=== PATIENT | female | born 1960 | race Hispanic/Latino ===

== ENCOUNTER 2019-08-25 19:41 | Inpatient (IN) | payer OTHER ==
[2019-08-25] MEDS ORDERED: cefTRIAXone\\ROCEPHIN 1 GM VIAL ONE (21:01)
[2019-08-25 22:10] VITALS: BMI 37.0
[2019-08-25] MEDS ORDERED: Metoprolol Tartrate 5 MG/5 ML VIAL IVP PRN (23:30)
--- NOTE | 2019-08-26 00:06 | HP ---
REASON FOR ADMISSION: Shortness of breath. HISTORY OF PRESENT ILLNESS: This is a 59-year-old female patient, who works at [employer] and she has been in contact with workers who tested positive for COVID-19. She herself started developing severe headaches and neck pain, myalgia, fatigue, and cough. She got tested and the result was positive, this occurred approximately a week ago. As the days progressed, her symptomatology got worse, and she became more short of breath and her cough increased, that is why she came to our emergency room. The patient is currently lying comfortably in her bed, does not appear in distress. She denies fevers, denies chills. PAST MEDICAL HISTORY: High blood pressure. ALLERGIES: TO LISINOPRIL. SOCIAL HISTORY: Does not smoke. Does not drink alcohol. FAMILY HISTORY: Reviewed, found to be noncontributory. REVIEW OF SYSTEMS: All systems reviewed and except the above-mentioned cough and shortness of breath, found to be negative. PHYSICAL EXAMINATION: GENERAL: She is awake, alert, oriented, does not appear in distress. VITAL SIGNS: Her blood pressure is 164/89, her heart rate is 109, and saturating 92% on 3 L nasal cannula. HEENT: Head is nontraumatic, normocephalic. Pupils equal, reactive. Ocular movements are intact. Nonicteric sclerae. Well-injected conjunctivae. Oral mucosa normal. Nasal mucosa normal. NECK: Supple. No adenopathy. No murmur. Thyroid is not palpable. Trachea is midline. No supraclavicular adenopathy. HEART: S1, S2 regular. No murmur. No gallops. No friction rubs. No displacement of PMI. LUNGS: Fine inspiratory crackles bilaterally. ABDOMEN: Bowel sounds are positive. Nontender abdomen. No hepatosplenomegaly. EXTREMITIES: No lower extremity edema. No cyanosis noted. NEUROLOGIC: Cranial nerves 2 through 12 within normal limits. Normal motor function. Normal sensory function. Normal reflexes. LABORATORY DATA: Blood work shows WBC of 5.6, hemoglobin 13.1, platelets of 423, neutrophil count 79.5%. D-dimer 0.75. VBG shows a pH 7.444, pCO2 of 33.4, PO2 of 149. Sodium 139, potassium of 3.2, bicarb of 19. COVID-19 detected. Chest x-ray shows extensive interstitial and alveolar opacity/ground-glass disease suspicious for possible multifocal infectious pneumonitis, including COVID-19. Pulmonary edema is a possibility. ASSESSMENT AND PLAN: This is a 59-year-old female patient who is presenting with worsening of her symptoms. She was diagnosed recently with COVID-19. She does have COVID-19 associated pneumonia/pneumonitis. 1. Pulmonary: The patient did receive antibiotics in the ER, but I believe that her current presentation is secondary to COVID-19. I would maintain her on IV Decadron. She already did receive IV Solu-Medrol. I would not cover her antibiotics for now. 2. In regard of high blood pressure, we will resume her medication and will have IV Lopressor on as needed basis. 3. For DVT prophylaxis, she will be on Lovenox. 4. For her low potassium, we will recheck her potassium level in the morning. Replace if necessary. 5. I did discuss with her the code status and she wishes to be a full code. Job ID: [id number]
[2019-08-26 06:03] LABS: #Lymphocytes 0.6 thou/uL (1.20-3.40); #Monocytes 0.1 thou/uL (0.11-0.59); #Neutrophils 2.4 thou/uL (1.40-6.50); %Basophils 0.5 % (0.0-1.0); %Eosinophils 0.7 % (0.0-10.0); %Lymphocytes 18.6 % (21.0-51.0); %Monocytes 4.2 % (0.0-10.0); %Neutrophils 75.9 % (42.0-75.0); Hemoglobin 13.4 g/dL (12.0-16.0); Mean Corpuscular HGB CONC 33.2 g/dL (32.0-36.0); Mean Corpuscular Hemoglobin 31.1 pg (27.0-31.0); Mean Corpuscular Volume 93.9 fL (78.0-98.0); Mean Platelet Volume 7.8 fL (7.4-10.4); Platelet Count 434 thou/uL (130-400); RBC Distribution Width 11.5 % (11.5-14.5); Red Blood Cell (RBC) Count 4.29 mill/uL (4.20-5.40); White Blood Cell (WBC) Count 3.2 thou/uL (4.8-10.8)
[2019-08-26 06:27] LABS: ALT (SGPT) 32 U/L (8-55); AST (SGOT) 39 U/L (5-34); Albumin 3.4 g/dL (3.5-5.0); Alkaline Phosphatase 129 U/L (40-110); Anion Gap 16 mmol/L (10-20); BUN (Urea Nitrogen) 11 mg/dL (9.8-20.1); Bilirubin, Total 0.4 mg/dL (0.2-1.2); Calc. Creatinine Clearance 162 mL/min (70-130); Calcium 8.7 mg/dL (7.8-10.44); Carbon Dioxide 18 mmol/L (22-29); Chloride 108 mmol/L (98-107); Estimated GFR-MDRD Greater than 90; Globulin 3.8 g/dL (2.4-3.5); Glucose 135 mg/dL (70-105); Potassium 3.3 mmol/L (3.5-5.1); Protein, Total 7.2 g/dL (6.0-8.3); Sodium 139 mmol/L (136-145)
[2019-08-26] MEDS: Amlodipine 5 MG TAB PO SCH (08:11)
[2019-08-26] MEDS: Dexamethasone 6 MG in Sodium Chloride 0.9% 50 ML IVPB SCH (08:11)
[2019-08-26] MEDS: Losartan 25 MG TAB PO SCH (08:11)
[2019-08-26] MEDS ORDERED: cloNIDine 0.1 MG TAB PO PRN (08:45)
[2019-08-26] MEDS ORDERED: Enoxaparin Sodium 40 MG/0.4 ML SYRINGE SC SCH (09:00)
[2019-08-26] MEDS: Enoxaparin Sodium 40 MG/0.4 ML SYRINGE SC SCH ×2 (09:35→21:05)
[2019-08-26] MEDS: Potassium Chloride 20 MEQ TAB PO SCH ×2 (09:36→11:57)
[2019-08-26] MEDS: Ipratropium/Albuterol Sulfate 4 GM AER IH PRN (11:58)
--- NOTE | 2019-08-26 13:34 | PRG ---
DATE OF SERVICE: This is a consent form dictation. I discussed the use of remdesivir with patient, explained that it is an emergency use authorization drug by the FDA that it has been shown to decrease the length of illness and it can be associated with liver and kidney toxicity and because of that, we monitor liver and kidney function daily for the duration of administration of the drug. The patient understood and agreed with the administration of the medication. Job ID: [id number]
--- NOTE | 2019-08-26 14:22 | PDOC.HOSPP ---
- Subjective Encounter Date: 08/26/19 Encounter Time: 14:00 Subjective: Patient seen and examined for resp failure. Feels gen weak. SOB on mild exertion. No new complaints. No overnight events - Objective Vital Signs & Weight: Vital Signs (12 hours) Temp Pulse Resp BP BP Pulse Ox 08/26/19 08:11 80 158/81 H 08/26/19 08:00 93 L 08/26/19 04:40 98.0 F 80 18 152/89 H 92 L Weight Weight 202 lb 3.2 oz Result Diagrams: 08/27/19 05:26 08/27/19 05:26 Radiology Reviewed by me: Yes (CXR - Pneumonia) Hospitalist ROS - Review of Systems Respiratory: reports: cough, dry, SOB with excertion. denies: shortness of breath, hemoptysis, pleuritic pain, sputum, wheezing, other Cardiovascular: denies: chest pain, palpitations, orthopnea, paroxysmal noc. dyspnea, edema, light headedness, other Gastrointestinal: denies: nausea, vomiting, abdominal pain, diarrhea, constipation, melena, hematochezia, other - Medication Medications: Active Medications Generic Name Dose Route Start Last Admin Trade Name Freq PRN Reason Stop Dose Admin Albuterol/Ipratropium 0 gm 08/26/19 11:12 08/26/19 11:58 Combivent Respimat 20-100 Mcg IH 1 inh Q4H PRN Administration SOB Amlodipine Besylate 5 mg 08/26/19 09:00 08/26/19 08:11 Norvasc PO 5 mg DAILY ABEBE Administration Enoxaparin Sodium 40 mg 08/26/19 09:00 08/26/19 09:35 Lovenox SC Not Given [id number] [facility] Dexamethasone 6 mg/ Sodium 50.6 mls @ 100 mls/hr 08/26/19 09:00 08/26/19 08: 11 Chloride IVPB 50.6 mls DAILY ABEBE Administration Losartan Potassium 50 mg 08/26/19 09:00 08/26/19 08:11 Cozaar PO 50 mg DAILY ABEBE Administration - Exam General Appearance: NAD Heart: RRR, no gallops, no rubs, normal peripheral pulses Respiratory: no wheezes, rales, rhonchi, tachypneic Gastrointestinal: non-tender, non-distended, normal bowel sounds Extremities: no cyanosis, no clubbing Neurological: no new deficit Psychiatric: normal affect, A&O x 3 Hosp A/P - Plan DVT proph w/lovenox, DVT proph w/SCDs Sepsis/Acute hypoxic resp failure due to COVID Pneumonia HTN Obesity BMI 37 Hypokalemia PLAN: Remdesivir started Cont Dexamethasone Replace Potassium Cont Amlodipine/Losartan Cont other meds as above AM labs
[2019-08-26 15:33] LABS: ALT (SGPT) 36 U/L (8-55); AST (SGOT) 41 U/L (5-34); Albumin 3.4 g/dL (3.5-5.0); Alkaline Phosphatase 135 U/L (40-110); Anion Gap 14 mmol/L (10-20); BUN (Urea Nitrogen) 15 mg/dL (9.8-20.1); Bilirubin, Direct 0.3 mg/dL (0.1-0.3); Bilirubin, Total 0.4 mg/dL (0.2-1.2); Calc. Creatinine Clearance 149 mL/min (70-130); Carbon Dioxide 20 mmol/L (22-29); Chloride 108 mmol/L (98-107); Estimated GFR-MDRD Greater than 90; Glucose 136 mg/dL (70-105); Potassium 4.1 mmol/L (3.5-5.1); Protein, Total 7.4 g/dL (6.0-8.3); Sodium 138 mmol/L (136-145)
--- NOTE | 2019-08-26 19:34 | CON ---
DATE OF CONSULTATION: 08/26/2019 REASON FOR CONSULTATION: COVID pneumonia. HISTORY OF PRESENT ILLNESS: A 59-year-old with history of hypertension, developed cough on August 16, persisted with fever on August 17, and then she tested positive for COVID on Tuesday and admitted yesterday with worsening dyspnea, cough, weakness, some lethargy, no headaches, some rhinorrhea, sinus pain, some sore throat, some sputum which is clear, some diarrhea, nausea associated with it as well, and vomiting. No abdominal pain. No genitourinary symptoms. No joint symptoms. No neurological symptoms. PAST MEDICAL HISTORY: Hypertension. SURGICAL HISTORY: Hysterectomy, . SOCIAL HISTORY: Never smoker. 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 ALLERGIES: LISINOPRIL. MEDICATIONS: 1. Losartan. 2. Norvasc. Currently, she is on; 1. Norvasc. 2. Clonidine. 3. Decadron. 4. Enoxaparin b.i.d. PHYSICAL EXAMINATION: VITAL SIGNS: T-max 98.7, blood pressure 150/89, pulse 80, respirations 18, and O2 saturation ranged from 92%. She is at 4 L nasal cannula at this time. SKIN: Normal. No lymphadenopathy. GENERAL: Awake, alert. She is able to speak in full sentences. HEENT: Ocular movements are conjugate. Oral cavity normal. NECK: Supple. LUNGS: With scattered inspiratory crackles particularly on the left lower lobe. No wheezing. HEART: S1 and S2. Regular rate. No S3 or S4. ABDOMEN: Soft, not distended or tender. No ascites. No bladder distention. EXTREMITIES: No joint inflammatory activity. NEURO: Nonfocal. LABORATORY DATA: White cell count 3.2, hemoglobin 13.4, platelets 434 with 75% neutrophils. Sodium 139, creatinine 0.54, AST 39, albumin 3.4. BNP 93. Microbiology, no negative growth in blood cultures. IMAGING STUDIES: Chest x-ray with bilateral interstitial alveolar opacification. ASSESSMENT: Hypertension, exposure in the workplace at [employer] in [place], where an outbreak seems to be going on, now comes in with severe infection at 10 days of illness. She is at 4 L O2 suppl . We will go ahead and start Remdesivir. Continue Decadron, Lovenox, and daily liver, basic metabolic panel as well as monitor inflammatory markers and D-dimer. suppl Job ID: [id number] [facility]
[2019-08-26] MEDS: Ascorbic Acid 500 mg Chewable Tablet PO SCH (21:04)
[2019-08-26] MEDS: Zinc Sulfate 220 MG CAP PO SCH (21:05)
[2019-08-27] MEDS: Benzonatate 100 MG CAP PO PRN ×2 (01:16→10:52)
[2019-08-27] MEDS: Acetaminophen 325 MG TAB PO PRN ×2 (01:16→06:34)
[2019-08-27 05:47] LABS: #Monocytes 0.6 thou/uL (0.11-0.59); #Neutrophils 7.7 thou/uL (1.40-6.50); %Basophils 0.2 % (0.0-1.0); %Eosinophils 0.2 % (0.0-10.0); %Lymphocytes 11.1 % (21.0-51.0); %Monocytes 6.1 % (0.0-10.0); %Neutrophils 82.4 % (42.0-75.0); Hemoglobin 12.8 g/dL (12.0-16.0); Mean Corpuscular HGB CONC 33.3 g/dL (32.0-36.0); Mean Corpuscular Hemoglobin 31.3 pg (27.0-31.0); Mean Platelet Volume 7.5 fL (7.4-10.4); Platelet Count 469 thou/uL (130-400); RBC Distribution Width 11.7 % (11.5-14.5); Red Blood Cell (RBC) Count 4.09 mill/uL (4.20-5.40); White Blood Cell (WBC) Count 9.4 thou/uL (4.8-10.8)
[2019-08-27 06:06] LABS: ALT (SGPT) 33 U/L (8-55); AST (SGOT) 32 U/L (5-34); Albumin 3.1 g/dL (3.5-5.0); Alkaline Phosphatase 112 U/L (40-110); Anion Gap 11 mmol/L (10-20); BUN (Urea Nitrogen) 19 mg/dL (9.8-20.1); Bilirubin, Total 0.4 mg/dL (0.2-1.2); CRP (Inflammatory) 5.29 mg/dL (= or < 0.5); Calc. Creatinine Clearance 144 mL/min (70-130); Calcium 8.7 mg/dL (7.8-10.44); Carbon Dioxide 22 mmol/L (22-29); Chloride 110 mmol/L (98-107); Estimated GFR-MDRD Greater than 90; Globulin 3.5 g/dL (2.4-3.5); Glucose 121 mg/dL (70-105); Potassium 4.2 mmol/L (3.5-5.1); Protein, Total 6.6 g/dL (6.0-8.3); Sodium 139 mmol/L (136-145)
[2019-08-27] MEDS: Dexamethasone 6 MG in Sodium Chloride 0.9% 50 ML IVPB SCH (08:25)
[2019-08-27] MEDS: Multivit, Therapeutic 1 TAB PO SCH (08:26)
[2019-08-27] MEDS: Enoxaparin Sodium 40 MG/0.4 ML SYRINGE SC SCH ×2 (08:26→20:29)
[2019-08-27] MEDS: Amlodipine 5 MG TAB PO SCH (08:26)
[2019-08-27] MEDS: Losartan 25 MG TAB PO SCH (08:26)
[2019-08-27] MEDS ORDERED: Vancomycin 1 GM in Premix Bag 1 BAG IVPB SCH (09:30)
[2019-08-27] MEDS ORDERED: Vancomycin HCl 1.75 GM in Sodium Chloride 0.9% 500 ML IVPB SCH (10:00)
--- NOTE | 2019-08-27 19:58 | PDOC.HOSPP ---
- Subjective Encounter Date: 08/27/19 Encounter Time: 19:58 - Objective Vital Signs & Weight: Vital Signs (12 hours) Temp Pulse Resp BP Pulse Ox 08/27/19 15:31 97.8 F 90 24 H 149/88 H 93 L 08/27/19 11:05 98.5 F 94 18 146/86 H 94 L 08/27/19 08:40 98.1 F 91 20 158/94 H 96 Weight Weight 202 lb 3.2 oz I&O: 08/26/19 08/27/19 08/28/19 06:59 06:59 06:59 Intake Total 1230 Balance 1230 Result Diagrams: 08/27/19 05:26 08/27/19 05:26 Hospitalist ROS - Medication Medications: Active Medications Generic Name Dose Route Start Last Admin Trade Name Freq PRN Reason Stop Dose Admin Acetaminophen 650 mg 08/25/19 23:29 08/27/19 06:34 Tylenol PO 650 mg Q4H PRN Administration Headache/Fever/Mild Pain (1-3) Albuterol/Ipratropium 0 gm 08/26/19 11:12 08/26/19 11:58 Combivent Respimat 20-100 Mcg IH 1 inh Q4H PRN Administration SOB Amlodipine Besylate 5 mg 08/26/19 09:00 08/27/19 08:26 Norvasc PO 5 mg DAILY ABEBE Administration Ascorbic Acid 1,000 mg 08/26/19 21:00 08/26/19 21:04 Vitamin C PO 1,000 mg HS ABEBE Administration Benzonatate 100 mg 08/27/19 00:52 08/27/19 10:52 Tessalon PO 100 mg TIDPRN PRN Administration Cough Enoxaparin Sodium 40 mg 08/26/19 09:00 08/27/19 08:26 Lovenox SC 40 mg 0900,2100 ABEBE Administration Dexamethasone 6 mg/ Sodium 50.6 mls @ 100 mls/hr 08/26/19 09:00 08/27/19 08: 25 Chloride IVPB 50.6 mls DAILY ABEBE Administration Remdesivir 100 Mg In 250 mls @ 250 mls/hr 08/27/19 15:00 08/27/19 15:11 Sodium Chloride 0.9 IV 08/30/19 15:59 250 mls % 250 Ml 1500 ABEBE Administration Losartan Potassium 50 mg 08/26/19 09:00 08/27/19 08:26 Cozaar PO 50 mg DAILY ABEBE Administration Multivitamins 1 tab 08/27/19 09:00 08/27/19 08:26 Theragran PO 1 tab DAILY ABEBE Administration Sodium Chloride 10 ml 08/26/19 21:00 08/27/19 08:26 Flush - Normal Saline IVF 10 ml Q12HR ABEBE Administration Zinc Sulfate 220 mg 08/26/19 21:00 08/26/19 21:05 Zinc Sulfate PO 220 mg HS ABEBE Administration Hosp A/P - Plan Sepsis/Acute hypoxic resp failure due to COVID Pneumonia -on Dexamethasone - day 2 -on Remdesivir - day 2 HTN Obesity BMI 37 Hypokalemia PLAN: Cont O2 supp Cont Remdesivir Cont Dexamethasone Cont Amlodipine Cont Losartan Cont other meds as above AM labs Monitor LFTs
[2019-08-27] MEDS: Zinc Sulfate 220 MG CAP PO SCH (20:29)
[2019-08-27] MEDS: guaiFENesin ER 600 MG TAB PO SCH (20:29)
[2019-08-27] MEDS: Ascorbic Acid 500 mg Chewable Tablet PO SCH (20:29)
[2019-08-28] MEDS: Benzonatate 100 MG CAP PO PRN ×2 (04:29→21:00)
[2019-08-28] MEDS: Cepastat Lozenges 1 LOZ PO PRN ×3 (04:48→21:08)
[2019-08-28 06:44] LABS: #Lymphocytes 0.9 thou/uL (1.20-3.40); #Monocytes 0.6 thou/uL (0.11-0.59); %Eosinophils 0.3 % (0.0-10.0); %Lymphocytes 9.5 % (21.0-51.0); %Monocytes 5.9 % (0.0-10.0); %Neutrophils 84.2 % (42.0-75.0); Hemoglobin 12.2 g/dL (12.0-16.0); Mean Corpuscular HGB CONC 34.1 g/dL (32.0-36.0); Mean Corpuscular Volume 93.9 fL (78.0-98.0); Mean Platelet Volume 7.5 fL (7.4-10.4); Platelet Count 414 thou/uL (130-400); RBC Distribution Width 11.7 % (11.5-14.5); Red Blood Cell (RBC) Count 3.81 mill/uL (4.20-5.40); White Blood Cell (WBC) Count 9.5 thou/uL (4.8-10.8)
[2019-08-28 07:05] LABS: ALT (SGPT) 26 U/L (8-55); AST (SGOT) 22 U/L (5-34); Alkaline Phosphatase 94 U/L (40-110); Anion Gap 13 mmol/L (10-20); BUN (Urea Nitrogen) 16 mg/dL (9.8-20.1); Bilirubin, Total 0.4 mg/dL (0.2-1.2); Calc. Creatinine Clearance 157 mL/min (70-130); Calcium 8.3 mg/dL (7.8-10.44); Carbon Dioxide 20 mmol/L (22-29); Chloride 108 mmol/L (98-107); Estimated GFR-MDRD Greater than 90; Globulin 3.1 g/dL (2.4-3.5); Glucose 95 mg/dL (70-105); Potassium 3.5 mmol/L (3.5-5.1); Protein, Total 6.1 g/dL (6.0-8.3); Sodium 137 mmol/L (136-145)
[2019-08-28] MEDS: guaiFENesin ER 600 MG TAB PO SCH ×2 (07:57→21:00)
[2019-08-28] MEDS: Multivit, Therapeutic 1 TAB PO SCH (07:57)
[2019-08-28] MEDS: Amlodipine 5 MG TAB PO SCH (07:57)
[2019-08-28] MEDS: Losartan 25 MG TAB PO SCH (07:58)
[2019-08-28] MEDS: Enoxaparin Sodium 40 MG/0.4 ML SYRINGE SC SCH ×2 (07:58→21:00)
[2019-08-28] MEDS: Dexamethasone 6 MG in Sodium Chloride 0.9% 50 ML IVPB SCH (07:58)
[2019-08-28] MEDS: Acetaminophen 325 MG TAB PO PRN (09:50)
--- NOTE | 2019-08-28 11:41 | PDOC.HOSPP ---
- Subjective Encounter Date: 08/28/19 Encounter Time: 13:37 Subjective: Patient seen and examined for COVID Pneumonia. Productive cough. No other complaints. No overnight events - Objective Vital Signs & Weight: Vital Signs (12 hours) Temp Pulse Resp BP Pulse Ox 08/28/19 10:00 97 08/28/19 08:27 98.8 F 88 20 164/92 H 93 L 08/28/19 04:42 88 18 96 08/28/19 00:54 92 L Weight Weight 202 lb 3.2 oz I&O: 08/27/19 08/28/19 08/29/19 06:59 06:59 06:59 Intake Total 1230 Balance 1230 Result Diagrams: 08/28/19 06:16 08/28/19 06:16 Hospitalist ROS - Review of Systems Cardiovascular: denies: chest pain, palpitations, orthopnea, paroxysmal noc. dyspnea, edema, light headedness, other Gastrointestinal: reports: constipation. denies: nausea, vomiting, abdominal pain, diarrhea, melena, hematochezia, other - Medication Medications: Active Medications Generic Name Dose Route Start Last Admin Trade Name Freq PRN Reason Stop Dose Admin Acetaminophen 650 mg 08/25/19 23:29 08/28/19 09:50 Tylenol PO 650 mg Q4H PRN Administration Headache/Fever/Mild Pain (1-3) Albuterol/Ipratropium 0 gm 08/26/19 11:12 08/26/19 11:58 Combivent Respimat 20-100 Mcg IH 1 inh Q4H PRN Administration SOB Amlodipine Besylate 5 mg 08/26/19 09:00 08/28/19 07:57 Norvasc PO 5 mg DAILY ABEBE Administration Ascorbic Acid 1,000 mg 08/26/19 21:00 08/27/19 20:29 Vitamin C PO 1,000 mg HS ABEBE Administration Benzonatate 100 mg 08/27/19 00:52 08/28/19 04:29 Tessalon PO 100 mg TIDPRN PRN Administration Cough Enoxaparin Sodium 40 mg 08/26/19 09:00 08/28/19 07:58 Lovenox SC 40 mg 0900,2100 ABEBE Administration Guaifenesin 600 mg 08/27/19 21:00 08/28/19 07:57 Mucinex PO 600 mg Q12HR ABEBE Administration Dexamethasone 6 mg/ Sodium 50.6 mls @ 100 mls/hr 08/26/19 09:00 08/28/19 07: 58 Chloride IVPB 50.6 mls DAILY ABEBE Administration Remdesivir 100 Mg In 250 mls @ 250 mls/hr 08/27/19 15:00 08/27/19 15:11 Sodium Chloride 0.9 IV 08/30/19 15:59 250 mls % 250 Ml 1500 ABEBE Administration Losartan Potassium 50 mg 08/26/19 09:00 08/28/19 07:58 Cozaar PO 50 mg DAILY ABEBE Administration Multivitamins 1 tab 08/27/19 09:00 08/28/19 07:57 Theragran PO 1 tab DAILY ABEBE Administration Sodium Chloride 10 ml 08/26/19 21:00 08/28/19 07:58 Flush - Normal Saline IVF 10 ml Q12HR ABEBE Administration Throat Lozenges 1 russell 08/27/19 19:53 08/28/19 09:51 Cepastat Lozenges PO 1 russell Q2H PRN Administration Sore Throat Zinc Sulfate 220 mg 08/26/19 21:00 08/27/19 20:29 Zinc Sulfate PO 220 mg HS ABEBE Administration - Exam General Appearance: NAD Neck: supple, no JVD Heart: RRR, no gallops Respiratory: no wheezes, rhonchi Gastrointestinal: soft, non-distended Extremities: no cyanosis Neurological: no new deficit Hosp A/P - Plan DVT proph w/lovenox, DVT proph w/SCDs Sepsis/Acute hypoxic resp failure due to COVID Pneumonia -on Dexamethasone - day 3 -on Remdesivir - day 3 HTN Obesity BMI 37 Hypokalemia PLAN: Cont O2 supp Cont Remdesivir Cont Dexamethasone Cont Amlodipine/Losartan Cont other meds as above AM labs Will send note to Pt;s work at [phone]
[2019-08-28] MEDS: Potassium Chloride 10 MEQ TAB PO SCH (17:12)
[2019-08-28] MEDS: Diabetic Tussin 200 MG/10 ML UDCUP PO PRN (21:00)
[2019-08-28] MEDS: Polyethylene Glycol 3350 17 GM Packet PO SCH (21:00)
[2019-08-28] MEDS: Senokot S 8.6-50 MG TAB PO SCH (21:00)
[2019-08-28] MEDS: Ascorbic Acid 500 mg Chewable Tablet PO SCH (21:00)
[2019-08-28] MEDS: Zinc Sulfate 220 MG CAP PO SCH (21:03)
[2019-08-29] MEDS: Acetaminophen 325 MG TAB PO PRN ×2 (03:03→19:57)
[2019-08-29 05:41] LABS: #Monocytes 0.6 thou/uL (0.11-0.59); #Neutrophils 6.2 thou/uL (1.40-6.50); %Basophils 0.2 % (0.0-1.0); %Eosinophils 0.6 % (0.0-10.0); %Lymphocytes 12.8 % (21.0-51.0); %Monocytes 7.1 % (0.0-10.0); %Neutrophils 79.4 % (42.0-75.0); Hemoglobin 11.8 g/dL (12.0-16.0); Mean Corpuscular HGB CONC 32.5 g/dL (32.0-36.0); Mean Corpuscular Hemoglobin 30.9 pg (27.0-31.0); Mean Corpuscular Volume 94.9 fL (78.0-98.0); Platelet Count 404 thou/uL (130-400); RBC Distribution Width 11.8 % (11.5-14.5); Red Blood Cell (RBC) Count 3.81 mill/uL (4.20-5.40); White Blood Cell (WBC) Count 7.9 thou/uL (4.8-10.8)
[2019-08-29 06:04] LABS: ALT (SGPT) 25 U/L (8-55); AST (SGOT) 24 U/L (5-34); Albumin 2.8 g/dL (3.5-5.0); Alkaline Phosphatase 90 U/L (40-110); Anion Gap 12 mmol/L (10-20); BUN (Urea Nitrogen) 14 mg/dL (9.8-20.1); Bilirubin, Total 0.4 mg/dL (0.2-1.2); Calc. Creatinine Clearance 172 mL/min (70-130); Carbon Dioxide 20 mmol/L (22-29); Chloride 108 mmol/L (98-107); Estimated GFR-MDRD Greater than 90; Glucose 100 mg/dL (70-105); Potassium 3.6 mmol/L (3.5-5.1); Protein, Total 5.8 g/dL (6.0-8.3); Sodium 136 mmol/L (136-145)
[2019-08-29] MEDS: guaiFENesin ER 600 MG TAB PO SCH ×2 (08:28→19:57)
[2019-08-29] MEDS: Senokot S 8.6-50 MG TAB PO SCH ×2 (08:28→19:57)
[2019-08-29] MEDS: Enoxaparin Sodium 40 MG/0.4 ML SYRINGE SC SCH ×2 (08:28→19:57)
[2019-08-29] MEDS: Potassium Chloride 10 MEQ TAB PO SCH ×2 (08:28→17:14)
[2019-08-29] MEDS: Dexamethasone 6 MG in Sodium Chloride 0.9% 50 ML IVPB SCH (08:29)
[2019-08-29] MEDS: Multivit, Therapeutic 1 TAB PO SCH (08:29)
[2019-08-29] MEDS: Losartan 25 MG TAB PO SCH (08:29)
[2019-08-29] MEDS: Amlodipine 5 MG TAB PO SCH (08:29)
--- NOTE | 2019-08-29 10:23 | PDOC.HOSPP ---
- Subjective Encounter Date: 08/29/19 Encounter Time: 18:00 Subjective: Patient seen and examined for Sepsis. SOB on mild exertion. Mild dry cough +. No new complaints. No overnight events - Objective Vital Signs & Weight: Vital Signs (12 hours) Temp Pulse Resp BP Pulse Ox 08/29/19 08:00 97.8 F 100 20 133/82 94 L 08/29/19 03:09 85 18 93 L Weight Weight 202 lb 3.2 oz I&O: 08/28/19 08/29/19 08/30/19 06:59 06:59 06:59 Intake Total 1230 730 Balance 1230 730 Result Diagrams: 08/30/19 06:03 08/30/19 06:03 Hospitalist ROS - Review of Systems Cardiovascular: denies: chest pain, palpitations, orthopnea, paroxysmal noc. dyspnea, edema, light headedness, other Gastrointestinal: denies: nausea, vomiting, abdominal pain, diarrhea, constipation, melena, hematochezia, other - Medication Medications: Active Medications Generic Name Dose Route Start Last Admin Trade Name Freq PRN Reason Stop Dose Admin Acetaminophen 650 mg 08/25/19 23:29 08/29/19 03:03 Tylenol PO 650 mg Q4H PRN Administration Headache/Fever/Mild Pain (1-3) Albuterol/Ipratropium 0 gm 08/26/19 11:12 08/26/19 11:58 Combivent Respimat 20-100 Mcg IH 1 inh Q4H PRN Administration SOB Amlodipine Besylate 5 mg 08/26/19 09:00 08/29/19 08:29 Norvasc PO 5 mg DAILY ABEBE Administration Ascorbic Acid 1,000 mg 08/26/19 21:00 08/28/19 21:00 Vitamin C PO 1,000 mg HS ABEBE Administration Benzonatate 100 mg 08/27/19 00:52 08/28/19 21:00 Tessalon PO 100 mg TIDPRN PRN Administration Cough Enoxaparin Sodium 40 mg 08/26/19 09:00 08/29/19 08:28 Lovenox SC 40 mg 0900,2100 ABEBE Administration Guaifenesin 600 mg 08/27/19 21:00 08/29/19 08:28 Mucinex PO 600 mg Q12HR ABEBE Administration Guaifenesin 200 mg 08/27/19 19:53 08/28/19 21:00 Robitussin Sf PO 200 mg Q4H PRN Administration Cough Dexamethasone 6 mg/ Sodium 50.6 mls @ 100 mls/hr 08/26/19 09:00 08/29/19 08: 29 Chloride IVPB 50.6 mls DAILY ABEBE Administration Remdesivir 100 Mg In 250 mls @ 250 mls/hr 08/27/19 15:00 08/28/19 15:27 Sodium Chloride 0.9 IV 08/30/19 15:59 250 mls % 250 Ml 1500 ABEBE Administration Losartan Potassium 50 mg 08/26/19 09:00 08/29/19 08:29 Cozaar PO 50 mg DAILY ABEBE Administration Multivitamins 1 tab 08/27/19 09:00 08/29/19 08:29 Theragran PO 1 tab DAILY ABEBE Administration Polyethylene Glycol 17 gm 08/28/19 21:00 08/28/19 21:00 Miralax PO 17 gm HS ABEBE Administration Potassium Chloride 10 meq 08/28/19 17:00 08/29/19 08:28 Klor-Con 10 PO 10 meq BID-WM ABEBE Administration Senna/Docusate Sodium 2 tab 08/28/19 21:00 08/29/19 08:28 Senokot S PO 2 tab BID ABEBE Administration Sodium Chloride 10 ml 08/26/19 21:00 08/29/19 08:29 Flush - Normal Saline IVF 10 ml Q12HR ABEBE Administration Throat Lozenges 1 russell 08/27/19 19:53 08/28/19 21:08 Cepastat Lozenges PO 1 russell Q2H PRN Administration Sore Throat Zinc Sulfate 220 mg 08/26/19 21:00 08/28/19 21:03 Zinc Sulfate PO 220 mg HS ABEBE Administration - Exam General Appearance: ill appearing Heart: RRR, no gallops Respiratory: no wheezes, rhonchi Gastrointestinal: soft, non-distended Extremities: no cyanosis Neurological: no new deficit Psychiatric: A&O x 3 Hosp A/P - Plan DVT proph w/SCDs Sepsis/Acute hypoxic resp failure due to COVID Pneumonia -on Dexamethasone - day 4 -on Remdesivir - day 4 HTN Obesity BMI 37 Hypokalemia PLAN: Cont O2 supp Cont Remdesivir/Dexamethasone Cont Amlodipine Cont Losartan AM labs Cont other meds as above
--- NOTE | 2019-08-29 16:57 | PRG ---
DATE OF SERVICE: 08/29/2019 SUBJECTIVE: Ms. Heidi Mcmanus does not have any major complaints. She ate about 75% of her meal. OBJECTIVE: VITAL SIGNS: She has been afebrile, O2 saturations are between 93% and 94% on 2 L nasal cannula, which is down from when she came in. LUNGS: Clear breath sounds. HEART: S1 and S2. Regular rate. ABDOMEN: Soft, not distended. LABORATORY DATA: D-dimer is down to 1.75. Ferritin is significantly down to 186, and C-reactive protein is down to 4.48. The patient is on Decadron and received Remdesivir finishing the course. ASSESSMENT AND DISCUSSION: Hypertension and improving COVID infection. O2 supplementation requirements are down and looks like she is going to be able to be discharged soon. Job ID: [id number]
[2019-08-29] MEDS: Polyethylene Glycol 3350 17 GM Packet PO SCH (19:04)
[2019-08-29] MEDS: Diabetic Tussin 200 MG/10 ML UDCUP PO PRN (19:57)
[2019-08-29] MEDS: Ascorbic Acid 500 mg Chewable Tablet PO SCH (19:57)
[2019-08-29] MEDS: Benzonatate 100 MG CAP PO PRN (19:57)
[2019-08-29] MEDS: Zinc Sulfate 220 MG CAP PO SCH (19:57)
[2019-08-30] MEDS: Diabetic Tussin 200 MG/10 ML UDCUP PO PRN ×3 (05:07→19:45)
[2019-08-30] MEDS: Benzonatate 100 MG CAP PO PRN ×3 (05:07→19:44)
[2019-08-30 06:40] LABS: #Eosinphils 0.1 thou/uL (0.0-0.7); #Lymphocytes 1.2 thou/uL (1.20-3.40); #Monocytes 0.7 thou/uL (0.11-0.59); #Neutrophils 8.8 thou/uL (1.40-6.50); %Basophils 0.1 % (0.0-1.0); %Lymphocytes 11.1 % (21.0-51.0); %Monocytes 6.5 % (0.0-10.0); %Neutrophils 81.4 % (42.0-75.0); Hemoglobin 12.6 g/dL (12.0-16.0); Mean Corpuscular HGB CONC 33.9 g/dL (32.0-36.0); Mean Corpuscular Hemoglobin 32.2 pg (27.0-31.0); Mean Platelet Volume 7.8 fL (7.4-10.4); Platelet Count 428 thou/uL (130-400); RBC Distribution Width 11.8 % (11.5-14.5); Red Blood Cell (RBC) Count 3.91 mill/uL (4.20-5.40); White Blood Cell (WBC) Count 10.8 thou/uL (4.8-10.8)
[2019-08-30 07:01] LABS: ALT (SGPT) 31 U/L (8-55); AST (SGOT) 29 U/L (5-34); Alkaline Phosphatase 100 U/L (40-110); Anion Gap 12 mmol/L (10-20); BUN (Urea Nitrogen) 15 mg/dL (9.8-20.1); Bilirubin, Total 0.5 mg/dL (0.2-1.2); Calc. Creatinine Clearance 165 mL/min (70-130); Calcium 8.3 mg/dL (7.8-10.44); Carbon Dioxide 23 mmol/L (22-29); Chloride 107 mmol/L (98-107); Estimated GFR-MDRD Greater than 90; Glucose 97 mg/dL (70-105); Potassium 3.6 mmol/L (3.5-5.1); Sodium 138 mmol/L (136-145)
[2019-08-30] MEDS: Senokot S 8.6-50 MG TAB PO SCH ×3 (08:52→19:44)
[2019-08-30] MEDS: guaiFENesin ER 600 MG TAB PO SCH ×2 (08:53→19:44)
[2019-08-30] MEDS: Amlodipine 5 MG TAB PO SCH (08:53)
[2019-08-30] MEDS: Potassium Chloride 10 MEQ TAB PO SCH ×2 (08:53→17:54)
[2019-08-30] MEDS: Losartan 25 MG TAB PO SCH (08:53)
[2019-08-30] MEDS: Multivit, Therapeutic 1 TAB PO SCH (08:53)
[2019-08-30] MEDS: Dexamethasone 6 MG in Sodium Chloride 0.9% 50 ML IVPB SCH (08:54)
[2019-08-30] MEDS: Enoxaparin Sodium 40 MG/0.4 ML SYRINGE SC SCH ×2 (08:54→19:45)
[2019-08-30] MEDS: Acetaminophen 325 MG TAB PO PRN (12:36)
[2019-08-30] MEDS: Polyethylene Glycol 3350 17 GM Packet PO SCH (19:25)
[2019-08-30] MEDS ORDERED: hydrALAZINE 20 MG/ML VIAL SLOW IVP PRN (19:35)
--- NOTE | 2019-08-30 19:35 | PDOC.HOSPP ---
- Subjective Encounter Date: 08/30/19 Encounter Time: 17:30 Subjective: Patient seen and examined for Sepsis/COVID. SOB on minimal exertion. No new complaints. No overnight events - Objective Vital Signs & Weight: Vital Signs (12 hours) Temp Pulse Resp BP Pulse Ox 08/30/19 08:06 97.8 F 98 20 142/82 H 92 L 08/30/19 08:00 92 L Weight Weight 202 lb 3.2 oz I&O: 08/29/19 08/30/19 08/31/19 06:59 06:59 06:59 Intake Total 709 731 8883 Balance 985 135 0908 Result Diagrams: 08/30/19 06:03 08/30/19 06:03 Hospitalist ROS - Review of Systems Cardiovascular: denies: chest pain, palpitations, orthopnea, paroxysmal noc. dyspnea, edema, light headedness, other Gastrointestinal: denies: nausea, vomiting, abdominal pain, diarrhea, constipation, melena, hematochezia, other - Medication Medications: Active Medications Generic Name Dose Route Start Last Admin Trade Name Freq PRN Reason Stop Dose Admin Acetaminophen 650 mg 08/25/19 23:29 08/30/19 12:36 Tylenol PO 650 mg Q4H PRN Administration Headache/Fever/Mild Pain (1-3) Albuterol/Ipratropium 0 gm 08/26/19 11:12 08/26/19 11:58 Combivent Respimat 20-100 Mcg IH 1 inh Q4H PRN Administration SOB Amlodipine Besylate 5 mg 08/26/19 09:00 08/30/19 08:53 Norvasc PO 5 mg DAILY ABEBE Administration Ascorbic Acid 1,000 mg 08/26/19 21:00 08/29/19 19:57 Vitamin C PO 1,000 mg HS ABEBE Administration Benzonatate 100 mg 08/27/19 00:52 08/30/19 15:15 Tessalon PO 100 mg TIDPRN PRN Administration Cough Enoxaparin Sodium 40 mg 08/26/19 09:00 08/30/19 08:54 Lovenox SC 40 mg 0900,2100 ABEBE Administration Guaifenesin 600 mg 08/27/19 21:00 08/30/19 08:53 Mucinex PO 600 mg Q12HR ABEBE Administration Guaifenesin 200 mg 08/27/19 19:53 08/30/19 08:53 Robitussin Sf PO 200 mg Q4H PRN Administration Cough Dexamethasone 6 mg/ Sodium 50.6 mls @ 100 mls/hr 08/26/19 09:00 08/30/19 08: 54 Chloride IVPB 50.6 mls DAILY ABEBE Administration Losartan Potassium 50 mg 08/26/19 09:00 08/30/19 08:53 Cozaar PO 50 mg DAILY ABEBE Administration Multivitamins 1 tab 08/27/19 09:00 08/30/19 08:53 Theragran PO 1 tab DAILY ABEBE Administration Polyethylene Glycol 17 gm 08/28/19 21:00 08/30/19 19:25 Miralax PO Not Given HS ABEBE Potassium Chloride 10 meq 08/28/19 17:00 08/30/19 17:54 Klor-Con 10 PO 10 meq BID-WM ABEBE Administration Senna/Docusate Sodium 2 tab 08/28/19 21:00 08/30/19 09:12 Senokot S PO Not Given BID ABEBE Sodium Chloride 10 ml 08/26/19 21:00 08/30/19 08:54 Flush - Normal Saline IVF 10 ml Q12HR ABEBE Administration Throat Lozenges 1 russell 08/27/19 19:53 08/28/19 21:08 Cepastat Lozenges PO 1 russell Q2H PRN Administration Sore Throat Zinc Sulfate 220 mg 08/26/19 21:00 08/29/19 19:57 Zinc Sulfate PO 220 mg HS ABEBE Administration - Exam General Appearance: ill appearing Heart: RRR, no gallops Respiratory: no wheezes, no rales, rhonchi Gastrointestinal: soft, non-tender Extremities: no cyanosis Neurological: no new deficit Hosp A/P - Plan DVT proph w/lovenox, DVT proph w/SCDs Sepsis/Acute hypoxic resp failure due to COVID Pneumonia -s/p Remdesivir HTN Obesity BMI 37 Hypokalemia PLAN: Cont O2 supp Cont Dexamethasone Cont Amlodipine/Losartan Cont other meds as above AM labs including inflammatory markers
[2019-08-30] MEDS: Ascorbic Acid 500 mg Chewable Tablet PO SCH (19:44)
[2019-08-30] MEDS: Zinc Sulfate 220 MG CAP PO SCH (19:45)
[2019-08-31 07:20] LABS: ALT (SGPT) 29 U/L (8-55); AST (SGOT) 25 U/L (5-34); Albumin 3.2 g/dL (3.5-5.0); Alkaline Phosphatase 104 U/L (40-110); Anion Gap 13 mmol/L (10-20); BUN (Urea Nitrogen) 14 mg/dL (9.8-20.1); Bilirubin, Total 0.5 mg/dL (0.2-1.2); Calc. Creatinine Clearance 151 mL/min (70-130); Calcium 8.7 mg/dL (7.8-10.44); Carbon Dioxide 22 mmol/L (22-29); Chloride 107 mmol/L (98-107); Estimated GFR-MDRD Greater than 90; Globulin 3.4 g/dL (2.4-3.5); Glucose 92 mg/dL (70-105); Potassium 4.3 mmol/L (3.5-5.1); Protein, Total 6.6 g/dL (6.0-8.3); Sodium 138 mmol/L (136-145)
[2019-08-31 07:25] LABS: #Eosinphils 0.1 thou/uL (0.0-0.7); #Lymphocytes 1.4 thou/uL (1.20-3.40); #Monocytes 0.6 thou/uL (0.11-0.59); %Basophils 0.2 % (0.0-1.0); %Eosinophils 0.6 % (0.0-10.0); %Lymphocytes 13.5 % (21.0-51.0); %Monocytes 5.5 % (0.0-10.0); %Neutrophils 80.2 % (42.0-75.0); Hemoglobin 12.7 g/dL (12.0-16.0); Mean Corpuscular HGB CONC 33.4 g/dL (32.0-36.0); Mean Corpuscular Hemoglobin 31.4 pg (27.0-31.0); Mean Corpuscular Volume 93.7 fL (78.0-98.0); Mean Platelet Volume 8.1 fL (7.4-10.4); Platelet Count 509 thou/uL (130-400); RBC Distribution Width 12.2 % (11.5-14.5); Red Blood Cell (RBC) Count 4.04 mill/uL (4.20-5.40)
[2019-08-31] MEDS: Acetaminophen 325 MG TAB PO PRN (09:09)
[2019-08-31] MEDS: Amlodipine 5 MG TAB PO SCH (09:09)
[2019-08-31] MEDS: Senokot S 8.6-50 MG TAB PO SCH ×2 (09:09→19:39)
[2019-08-31] MEDS: Multivit, Therapeutic 1 TAB PO SCH (09:09)
[2019-08-31] MEDS: guaiFENesin ER 600 MG TAB PO SCH ×2 (09:09→19:39)
[2019-08-31] MEDS: Losartan 25 MG TAB PO SCH (09:09)
[2019-08-31] MEDS: Potassium Chloride 10 MEQ TAB PO SCH ×2 (09:09→16:00)
[2019-08-31] MEDS: Benzonatate 100 MG CAP PO PRN ×3 (09:09→19:39)
[2019-08-31] MEDS: Dexamethasone 6 MG in Sodium Chloride 0.9% 50 ML IVPB SCH (09:10)
[2019-08-31] MEDS: Enoxaparin Sodium 40 MG/0.4 ML SYRINGE SC SCH ×2 (09:10→19:38)
[2019-08-31] MEDS: Famotidine 20 MG TAB PO SCH ×2 (10:06→19:39)
[2019-08-31] MEDS: Diabetic Tussin 200 MG/10 ML UDCUP PO PRN ×3 (12:02→19:39)
[2019-08-31] MEDS: Ipratropium/Albuterol Sulfate 4 GM AER IH PRN ×2 (12:02→17:50)
--- NOTE | 2019-08-31 12:18 | CON ---
DATE OF CONSULTATION: 08/31/2019 HISTORY OF PRESENT ILLNESS: Yojana Mcmanus is a 59-year-old [place] female, who has been in the hospital since the . Today is the . Being consulted Pulmonary regarding her pulmonary status. I spoke to the nurse. She is not having any difficulty breathing. She is not coughing or wheezing. Her vital signs are relatively stable. The patient received since admission, decadron. She works at [email or web address] in a local [employer]. She has been positive for several days prior to coming to the hospital. She did have worsening cough and shortness of breath at the time of admission. PAST MEDICAL HISTORY: Hypertension. PREVIOUS SURGERIES: Included a hysterectomy and . ALLERGIES: LISINOPRIL. HOME MEDICATIONS: 1. Amlodipine 5. 2. Cozaar 50 mg daily. SOCIAL HISTORY: No alcohol or tobacco abuse. REVIEW OF SYSTEMS: Negative. PHYSICAL EXAMINATION: VITAL SIGNS: Temperature 97.7, respiratory rate 18, saturations are 98% on 2 L, blood pressure 120/71. CHEST: No wheezing or crackles. CARDIAC: Normal S1 and S2. ABDOMEN: No masses. LABORATORY DATA: Unremarkable. C-reactive protein 5.28. Initial chest x-ray showed minimal infiltrates. IMPRESSION: Coronavirus positive pneumonia, bilateral infiltrates, stable. She has received Decadron, Lovenox, Mucinex, Remdesivir. Low conjugated plasma. No antibiotics that I can see. Get a baseline chest x-ray. May consider empirically starting on doxycycline. Consultation note, 70 minutes, 50% direct patient care. Job ID: [id number]
--- NOTE | 2019-08-31 13:26 | RAD ---
Portable chest: HISTORY: Possible pneumonia COMPARISON: 08/25/2019 FINDINGS:Patchy confluent bilateral alveolar infiltrates are more pronounced today than on the prior study. IMPRESSION:Progression of bilateral pneumonia.
--- NOTE | 2019-08-31 17:30 | PDOC.HOSPP ---
- Subjective Encounter Date: 08/31/19 Encounter Time: 17:28 Subjective: Patient seen and examined for Resp failure/COVID. SOB on exertion. Dry cough. No new complaints. No overnight events - Objective Vital Signs & Weight: Vital Signs (12 hours) Temp Pulse Resp BP Pulse Ox 08/31/19 16:15 98 F 85 18 124/78 96 08/31/19 09:10 97.8 F 87 18 127/71 94 L Weight Weight 202 lb 3.2 oz I&O: 08/30/19 08/31/19 09/01/19 06:59 06:59 06:59 Intake Total 220 1360 Balance 220 1360 Result Diagrams: 08/31/19 06:38 08/31/19 06:38 Radiology Reviewed by me: Yes (CXR - B/L infiltrate) Hospitalist ROS - Review of Systems Cardiovascular: denies: chest pain, palpitations, orthopnea, paroxysmal noc. dyspnea, edema, light headedness, other Gastrointestinal: denies: nausea, vomiting, abdominal pain, diarrhea, constipation, melena, hematochezia, other - Medication Medications: Active Medications Generic Name Dose Route Start Last Admin Trade Name Freq PRN Reason Stop Dose Admin Acetaminophen 650 mg 08/25/19 23:29 08/30/19 12:36 Tylenol PO 650 mg Q4H PRN Administration Headache/Fever/Mild Pain (1-3) Albuterol/Ipratropium 0 gm 08/26/19 11:12 08/31/19 12:02 Combivent Respimat 20-100 Mcg IH 1 inh Q4H PRN Administration SOB Amlodipine Besylate 5 mg 08/26/19 09:00 08/31/19 09:09 Norvasc PO 5 mg DAILY ABEBE Administration Ascorbic Acid 1,000 mg 08/26/19 21:00 08/30/19 19:44 Vitamin C PO 1,000 mg HS ABEBE Administration Benzonatate 100 mg 08/27/19 00:52 08/31/19 15:58 Tessalon PO 100 mg TIDPRN PRN Administration Cough Enoxaparin Sodium 40 mg 08/26/19 09:00 08/31/19 09:10 Lovenox SC 40 mg 0900,2100 ABEBE Administration Famotidine 20 mg 08/31/19 09:00 08/31/19 10:06 Pepcid PO 20 mg BID ABEBE Administration Guaifenesin 600 mg 08/27/19 21:00 08/31/19 09:09 Mucinex PO 600 mg Q12HR ABEBE Administration Guaifenesin 200 mg 08/27/19 19:53 08/31/19 15:58 Robitussin Sf PO 200 mg Q4H PRN Administration Cough Losartan Potassium 50 mg 08/26/19 09:00 08/31/19 09:09 Cozaar PO 50 mg DAILY ABEBE Administration Multivitamins 1 tab 08/27/19 09:00 08/31/19 09:09 Theragran PO 1 tab DAILY ABEBE Administration Polyethylene Glycol 17 gm 08/28/19 21:00 08/30/19 19:25 Miralax PO Not Given HS ABEBE Potassium Chloride 10 meq 08/28/19 17:00 08/31/19 16:00 Klor-Con 10 PO 10 meq BID-WM ABEBE Administration Senna/Docusate Sodium 2 tab 08/28/19 21:00 08/31/19 09:09 Senokot S PO 2 tab BID ABEBE Administration Sodium Chloride 10 ml 08/26/19 21:00 08/31/19 09:10 Flush - Normal Saline IVF 10 ml Q12HR ABEBE Administration Throat Lozenges 1 russell 08/27/19 19:53 08/28/19 21:08 Cepastat Lozenges PO 1 russell Q2H PRN Administration Sore Throat Zinc Sulfate 220 mg 08/26/19 21:00 08/30/19 19:45 Zinc Sulfate PO 220 mg HS ABEBE Administration - Exam General Appearance: NAD Neck: supple, no JVD Heart: no gallops, no rubs Respiratory: no rales, rhonchi Gastrointestinal: soft, non-tender, normal bowel sounds Extremities: no cyanosis Neurological: no new deficit Hosp A/P - Plan DVT proph w/lovenox, DVT proph w/SCDs Sepsis/Acute hypoxic resp failure due to COVID Pneumonia -on Dexamethasone -s/p Remdesivir HTN Obesity BMI 37 Hypokalemia PLAN: Cont O2 supp Pulmonary consulted due to increased O2 requirement Cont Dexamethasone Cont Amlodipine/Losartan and other meds as above AM labs Monitor inf markers
[2019-08-31] MEDS: methylPREDNISolone Sod Succ 40 MG VIAL IVP SCH (17:50)
[2019-08-31] MEDS: Polyethylene Glycol 3350 17 GM Packet PO SCH (19:22)
[2019-08-31] MEDS: Zinc Sulfate 220 MG CAP PO SCH (19:38)
[2019-08-31] MEDS: Ascorbic Acid 500 mg Chewable Tablet PO SCH (19:39)
[2019-08-31] MEDS: Doxycycline 100 MG CAP PO SCH (19:39)
[2019-09-01] MEDS: methylPREDNISolone Sod Succ 40 MG VIAL IVP SCH ×4 (00:13→17:14)
[2019-09-01 06:15] LABS: #Lymphocytes 0.5 thou/uL (1.20-3.40); #Monocytes 0.1 thou/uL (0.11-0.59); #Neutrophils 6.3 thou/uL (1.40-6.50); %Eosinophils 0.3 % (0.0-10.0); %Lymphocytes 7.7 % (21.0-51.0); %Monocytes 1.9 % (0.0-10.0); %Neutrophils 90.2 % (42.0-75.0); Hemoglobin 11.9 g/dL (12.0-16.0); Mean Corpuscular HGB CONC 33.2 g/dL (32.0-36.0); Mean Corpuscular Hemoglobin 31.5 pg (27.0-31.0); Mean Platelet Volume 8.2 fL (7.4-10.4); Platelet Count 411 thou/uL (130-400); RBC Distribution Width 13.1 % (11.5-14.5); Red Blood Cell (RBC) Count 3.77 mill/uL (4.20-5.40); White Blood Cell (WBC) Count 6.9 thou/uL (4.8-10.8)
[2019-09-01 06:39] LABS: ALT (SGPT) 24 U/L (8-55); AST (SGOT) 16 U/L (5-34); Alkaline Phosphatase 98 U/L (40-110); Anion Gap 13 mmol/L (10-20); BUN (Urea Nitrogen) 12 mg/dL (9.8-20.1); Bilirubin, Total 0.4 mg/dL (0.2-1.2); Calc. Creatinine Clearance 162 mL/min (70-130); Calcium 8.6 mg/dL (7.8-10.44); Carbon Dioxide 23 mmol/L (22-29); Chloride 106 mmol/L (98-107); Estimated GFR-MDRD Greater than 90; Globulin 3.2 g/dL (2.4-3.5); Glucose 147 mg/dL (70-105); Potassium 4.5 mmol/L (3.5-5.1); Protein, Total 6.2 g/dL (6.0-8.3); Sodium 137 mmol/L (136-145)
[2019-09-01] MEDS: Doxycycline 100 MG CAP PO SCH ×2 (07:55→20:13)
[2019-09-01] MEDS: Multivit, Therapeutic 1 TAB PO SCH (07:56)
[2019-09-01] MEDS: Amlodipine 5 MG TAB PO SCH (07:56)
[2019-09-01] MEDS: Enoxaparin Sodium 40 MG/0.4 ML SYRINGE SC SCH ×2 (07:56→20:14)
[2019-09-01] MEDS: Losartan 25 MG TAB PO SCH (07:56)
[2019-09-01] MEDS: Diabetic Tussin 200 MG/10 ML UDCUP PO PRN (07:56)
[2019-09-01] MEDS: guaiFENesin ER 600 MG TAB PO SCH ×2 (07:56→20:13)
[2019-09-01] MEDS: Potassium Chloride 10 MEQ TAB PO SCH (07:56)
[2019-09-01] MEDS: Famotidine 20 MG TAB PO SCH ×2 (07:56→21:30)
[2019-09-01] MEDS: Senokot S 8.6-50 MG TAB PO SCH ×2 (08:00→20:13)
[2019-09-01] MEDS: Ipratropium/Albuterol Sulfate 4 GM AER IH PRN (10:00)
--- NOTE | 2019-09-01 12:59 | PDOC.HOSPP ---
- Subjective Encounter Date: 09/01/19 Encounter Time: 16:00 Subjective: Patient seen and examined for Resp failure. SOB on minimal exertion. Mild cough with some produciton. No other complaints. No overnight events - Objective Vital Signs & Weight: Vital Signs (12 hours) Temp Pulse Resp BP Pulse Ox 09/01/19 08:24 93 L 09/01/19 08:20 97.8 F 105 H 20 153/88 H 93 L 09/01/19 07:56 65 09/01/19 05:38 95 Weight Weight 202 lb 3.2 oz I&O: 08/31/19 09/01/19 09/02/19 06:59 06:59 06:59 Intake Total 1360 1320 Balance 1360 1320 Result Diagrams: 09/02/19 05:48 09/02/19 05:48 Hospitalist ROS - Review of Systems Respiratory: reports: cough, shortness of breath, SOB with excertion. denies: dry, hemoptysis, pleuritic pain, sputum, wheezing, other Cardiovascular: denies: chest pain, palpitations, orthopnea, paroxysmal noc. dyspnea, edema, light headedness, other - Medication Medications: Active Medications Generic Name Dose Route Start Last Admin Trade Name Freq PRN Reason Stop Dose Admin Acetaminophen 650 mg 08/25/19 23:29 08/30/19 12:36 Tylenol PO 650 mg Q4H PRN Administration Headache/Fever/Mild Pain (1-3) Albuterol/Ipratropium 0 gm 08/26/19 11:12 08/31/19 17:50 Combivent Respimat 20-100 Mcg IH 1 inh Q4H PRN Administration SOB Amlodipine Besylate 5 mg 08/26/19 09:00 09/01/19 07:56 Norvasc PO 5 mg DAILY ABEBE Administration Ascorbic Acid 1,000 mg 08/26/19 21:00 08/31/19 19:39 Vitamin C PO 1,000 mg HS ABEBE Administration Benzonatate 100 mg 08/27/19 00:52 08/31/19 19:39 Tessalon PO 100 mg TIDPRN PRN Administration Cough Doxycycline Hyclate 100 mg 08/31/19 21:00 09/01/19 07:55 Vibramycin PO 100 mg BID ABEBE Administration Enoxaparin Sodium 40 mg 08/26/19 09:00 09/01/19 07:56 Lovenox SC 40 mg 0900,2100 ABEBE Administration Famotidine 20 mg 08/31/19 09:00 09/01/19 07:56 Pepcid PO 20 mg BID ABEBE Administration Guaifenesin 600 mg 08/27/19 21:00 09/01/19 07:56 Mucinex PO 600 mg Q12HR ABEBE Administration Guaifenesin 200 mg 08/27/19 19:53 09/01/19 07:56 Robitussin Sf PO 200 mg Q4H PRN Administration Cough Losartan Potassium 50 mg 08/26/19 09:00 09/01/19 07:56 Cozaar PO 50 mg DAILY ABEBE Administration Methylprednisolone Sodium Succinate 40 mg 08/31/19 18:00 09/01/19 12:49 Solu-Medrol IVP 40 mg Q6HR ABEBE Administration Multivitamins 1 tab 08/27/19 09:00 09/01/19 07:56 Theragran PO 1 tab DAILY ABEBE Administration Polyethylene Glycol 17 gm 08/28/19 21:00 08/31/19 19:22 Miralax PO Not Given HS ABEBE Senna/Docusate Sodium 2 tab 08/28/19 21:00 09/01/19 08:00 Senokot S PO Not Given BID ABEBE Sodium Chloride 10 ml 08/26/19 21:00 09/01/19 12:49 Flush - Normal Saline IVF 10 ml Q12HR ABEBE Administration Throat Lozenges 1 russell 08/27/19 19:53 08/28/19 21:08 Cepastat Lozenges PO 1 russell Q2H PRN Administration Sore Throat Zinc Sulfate 220 mg 08/26/19 21:00 08/31/19 19:38 Zinc Sulfate PO 220 mg HS ABEBE Administration - Exam General Appearance: NAD Heart: RRR, no gallops Respiratory: rhonchi, tachypneic Gastrointestinal: soft, non-tender, normal bowel sounds Extremities: no cyanosis Neurological: no new deficit Hosp A/P - Plan DVT proph w/lovenox, DVT proph w/SCDs Sepsis/Acute hypoxic resp failure due to COVID Pneumonia -s/p Remdesivir -s/p Conv Plasma -on Doxy HTN -on Amlodipine/Losartan Obesity BMI 37 Hypokalemia - replaced PLAN: Cont O2 supp Cont Steroids Cont other meds as above AM labs Cont GI/DVT prophylaxis
--- NOTE | 2019-09-01 16:03 | PRG ---
DATE OF SERVICE: 09/01/2019 SUBJECTIVE: The patient has noted decrease in cough. Mild dyspnea. No abdominal pain. No diarrhea. OBJECTIVE: VITAL SIGNS: Temperature max 98.1, BP 140/86, pulse 105, respirations 20, and O2 saturation 94 on 2 L nasal cannula. GENERAL: Awake, alert, in no distress. LUNGS: Bilateral lungs sounds with no crackles or wheezing. HEART: S1 and S2. Regular rate. ABDOMEN: Soft, not distended or tender. LABORATORY DATA: White cell count 6.9, hemoglobin 11.9, and platelets 411. D-dimer was down to 1.75, now 2.24. Ferritin is down to 178. C-reactive protein was down to 4.48, now is up to 5.28, currently on methylprednisolone. ASSESSMENT AND DISCUSSION: 1. Hypertension. 2. COVID infection. Finished a course of remdesivir. She has been switched to Medrol. In general, the studies supported Decadron, specifically have chosen the lower dose of corticosteroids to avoid the immunosuppressive effects of higher doses, which have been associated with worse outcomes and other viral infections, so I still think that is the preferable course of action rather than larger doses of corticosteroids. Job ID: [id number]
[2019-09-01] MEDS: Zinc Sulfate 220 MG CAP PO SCH (20:13)
[2019-09-01] MEDS: Ascorbic Acid 500 mg Chewable Tablet PO SCH (20:13)
[2019-09-01] MEDS: Polyethylene Glycol 3350 17 GM Packet PO SCH (20:15)
[2019-09-01] MEDS: Acetaminophen 325 MG TAB PO PRN (22:27)
[2019-09-02] MEDS: methylPREDNISolone Sod Succ 40 MG VIAL IVP SCH ×4 (00:08→17:27)
[2019-09-02 06:34] LABS: ALT (SGPT) 28 U/L (8-55); AST (SGOT) 16 U/L (5-34); Alkaline Phosphatase 95 U/L (40-110); Anion Gap 12 mmol/L (10-20); BUN (Urea Nitrogen) 17 mg/dL (9.8-20.1); Bilirubin, Total 0.3 mg/dL (0.2-1.2); CRP (Inflammatory) 1.67 mg/dL (= or < 0.5); Calc. Creatinine Clearance 154 mL/min (70-130); Calcium 8.6 mg/dL (7.8-10.44); Carbon Dioxide 23 mmol/L (22-29); Chloride 106 mmol/L (98-107); Estimated GFR-MDRD Greater than 90; Globulin 3.1 g/dL (2.4-3.5); Glucose 133 mg/dL (70-105); Magnesium 1.9 mg/dL (1.6-2.6); Potassium 4.6 mmol/L (3.5-5.1); Protein, Total 6.1 g/dL (6.0-8.3); Sodium 136 mmol/L (136-145)
[2019-09-02 06:42] LABS: #Lymphocytes 0.7 thou/uL (1.20-3.40); #Monocytes 0.3 thou/uL (0.11-0.59); #Neutrophils 11.6 thou/uL (1.40-6.50); %Eosinophils 0.2 % (0.0-10.0); %Lymphocytes 5.8 % (21.0-51.0); %Monocytes 2.7 % (0.0-10.0); %Neutrophils 91.4 % (42.0-75.0); Hemoglobin 12.4 g/dL (12.0-16.0); Mean Corpuscular HGB CONC 34.3 g/dL (32.0-36.0); Mean Corpuscular Hemoglobin 32.8 pg (27.0-31.0); Mean Corpuscular Volume 95.8 fL (78.0-98.0); Mean Platelet Volume 8.6 fL (7.4-10.4); Platelet Count 455 thou/uL (130-400); RBC Distribution Width 13.1 % (11.5-14.5); Red Blood Cell (RBC) Count 3.77 mill/uL (4.20-5.40); White Blood Cell (WBC) Count 12.7 thou/uL (4.8-10.8)
[2019-09-02] MEDS: Enoxaparin Sodium 40 MG/0.4 ML SYRINGE SC SCH ×2 (08:13→20:51)
[2019-09-02] MEDS: guaiFENesin ER 600 MG TAB PO SCH ×2 (08:14→20:51)
[2019-09-02] MEDS: Losartan 25 MG TAB PO SCH (08:14)
[2019-09-02] MEDS: Doxycycline 100 MG CAP PO SCH ×2 (08:14→20:50)
[2019-09-02] MEDS: Amlodipine 5 MG TAB PO SCH (08:14)
[2019-09-02] MEDS: Multivit, Therapeutic 1 TAB PO SCH (08:14)
[2019-09-02] MEDS: Famotidine 20 MG TAB PO SCH ×2 (08:14→20:51)
[2019-09-02] MEDS: Ipratropium/Albuterol Sulfate 4 GM AER IH PRN (08:30)
[2019-09-02] MEDS ORDERED: Ipratropium/Albuterol Sulfate 4 GM AER IH SCH (08:30)
[2019-09-02] MEDS: Senokot S 8.6-50 MG TAB PO SCH ×2 (08:46→21:36)
--- NOTE | 2019-09-02 09:56 | PRG ---
DATE OF SERVICE: 09/01/2019 SUBJECTIVE: This morning, she is still short of breath. OBJECTIVE: VITAL SIGNS: Saturations are 94% on 4L, temperature 97.8, pulse 105, respiratory rate 20,blood pressure 153/88. CHEST: Crackles without any wheezing. CARDIAC: Normal S1, S2. No gallops. ABDOMEN: No masses. IMPRESSION: Respiratory failure, coronavirus pneumonia. She received conjugated convalescent plasma last night. She had high-dose steroids and broad-spectrum antibiotics, which should continue. Hopefully once her saturation improved, to be able to be discharged home. Job ID: [id number]
[2019-09-02] MEDS: Albuterol 200 PUFF (6.7GM INHALER) INH SCH ×4 (10:30→21:36)
--- NOTE | 2019-09-02 12:33 | PRG ---
DATE OF SERVICE: 09/02/2019 OBJECTIVE: VITAL SIGNS: Saturations are 98% on 4 L, respiratory rate 20, temperature 98, pulse 79, blood pressure 120/81. Denies any coughing. CHEST: Bilateral crackles. CARDIAC: Normal S1, S2. No gallops. ABDOMEN: No masses. LABORATORY DATA: inflammatory markers are decreasing. C-reactive protein is down to 1.6. IMPRESSION AND PLAN: 1. Hagan positive pneumonia. 2. Respiratory failure. 3. Acute respiratory distress syndrome. 4. Bilateral pneumonia. She has received convalescent plasma. She is on steroids, antibiotics, supportive care. I have added some . We will follow. Job ID: [id number]
--- NOTE | 2019-09-02 15:30 | PDOC.HOSPP ---
- Subjective Encounter Date: 09/02/19 Encounter Time: 15:00 Subjective: Patient seen and examined for resp failure. SOB improving. No new complaints. No overnight events - Objective Vital Signs & Weight: Vital Signs (12 hours) Temp Pulse Resp BP BP Pulse Ox 09/02/19 08:40 98.3 F 79 20 129/81 90 L 09/02/19 08:30 90 L 09/02/19 08:14 75 09/02/19 05:42 93 L 09/02/19 04:00 97.9 F 75 20 144/77 H 93 L Weight Weight 202 lb 3.2 oz I&O: 09/01/19 09/02/19 09/03/19 06:59 06:59 06:59 Intake Total 1320 840 Balance 1320 840 Result Diagrams: 09/02/19 05:48 09/02/19 05:48 Additional Labs: Laboratory Tests 08/31/19 08/31/19 08/31/19 06:38 06:38 06:38 D-Dimer 2.24 H Ferritin 178.04 C-Reactive Protein 5.28 H B-Natriuretic Peptide 09/01/19 09/02/19 09/02/19 05:41 05:48 05:48 D-Dimer Ferritin 168.19 C-Reactive Protein 1.67 H B-Natriuretic Peptide 41.5 09/02/19 05:48 D-Dimer 1.33 H Ferritin C-Reactive Protein B-Natriuretic Peptide Radiology Reviewed by me: Yes (Recent CXR - B/L infiltrates) Hospitalist ROS - Review of Systems Respiratory: reports: cough, dry, shortness of breath, SOB with excertion. denies: hemoptysis, pleuritic pain, sputum, wheezing, other Cardiovascular: denies: chest pain, palpitations, orthopnea, paroxysmal noc. dyspnea, edema, light headedness, other Gastrointestinal: denies: nausea, vomiting, abdominal pain, diarrhea, constipation, melena, hematochezia, other - Medication Medications: Active Medications Generic Name Dose Route Start Last Admin Trade Name Freq PRN Reason Stop Dose Admin Acetaminophen 650 mg 08/25/19 23:29 09/01/19 22:27 Tylenol PO 650 mg Q4H PRN Administration Headache/Fever/Mild Pain (1-3) Albuterol Sulfate 2 puff 09/02/19 10:30 09/02/19 15:14 Proventil Hfa INH 2 puff [id number] ABEBE Administration Amlodipine Besylate 5 mg 08/26/19 09:00 09/02/19 08:14 Norvasc PO 5 mg DAILY ABEBE Administration Ascorbic Acid 1,000 mg 08/26/19 21:00 09/01/19 20:13 Vitamin C PO 1,000 mg HS ABEBE Administration Benzonatate 100 mg 08/27/19 00:52 08/31/19 19:39 Tessalon PO 100 mg TIDPRN PRN Administration Cough Doxycycline Hyclate 100 mg 08/31/19 21:00 09/02/19 08:14 Vibramycin PO 100 mg BID ABEBE Administration Enoxaparin Sodium 40 mg 08/26/19 09:00 09/02/19 08:13 Lovenox SC 40 mg 0900,2100 ABEBE Administration Famotidine 20 mg 08/31/19 09:00 09/02/19 08:14 Pepcid PO 20 mg BID ABEBE Administration Guaifenesin 600 mg 08/27/19 21:00 09/02/19 08:14 Mucinex PO 600 mg Q12HR ABEBE Administration Guaifenesin 200 mg 08/27/19 19:53 09/01/19 07:56 Robitussin Sf PO 200 mg Q4H PRN Administration Cough Losartan Potassium 50 mg 08/26/19 09:00 09/02/19 08:14 Cozaar PO 50 mg DAILY ABEBE Administration Methylprednisolone Sodium Succinate 40 mg 08/31/19 18:00 09/02/19 12:14 Solu-Medrol IVP 40 mg Q6HR ABEBE Administration Multivitamins 1 tab 08/27/19 09:00 09/02/19 08:14 Theragran PO 1 tab DAILY ABEBE Administration Polyethylene Glycol 17 gm 08/28/19 21:00 09/01/19 20:15 Miralax PO 17 gm HS ABEBE Administration Senna/Docusate Sodium 2 tab 08/28/19 21:00 09/02/19 08:46 Senokot S PO Not Given BID ABEBE Sodium Chloride 10 ml 08/26/19 21:00 09/02/19 08:15 Flush - Normal Saline IVF 10 ml Q12HR ABEBE Administration Throat Lozenges 1 russell 08/27/19 19:53 08/28/19 21:08 Cepastat Lozenges PO 1 russell Q2H PRN Administration Sore Throat Zinc Sulfate 220 mg 08/26/19 21:00 09/01/19 20:13 Zinc Sulfate PO 220 mg HS ABEBE Administration - Exam General Appearance: NAD Heart: RRR, no gallops Respiratory: no wheezes, rhonchi, tachypneic Gastrointestinal: soft, non-tender, non-distended Extremities: no cyanosis Neurological: no new deficit Hosp A/P - Plan DVT proph w/lovenox, DVT proph w/SCDs Sepsis/Acute hypoxic resp failure due to COVID Pneumonia -s/p Remdesivir -s/p Conv Plasma -on Doxy -on Steroids HTN -on Amlodipine/Losartan Obesity BMI 37 Hypokalemia - replaced PLAN: Wean O2 as tolerated Cont Steroids per Pulmonary Cont other meds as above AM labs including inf markers Cont GI/DVT prophylaxis DC planning - prob in 2-3 days Not stable for dc
[2019-09-02] MEDS: Mometasone 100 MCG/PUFF (1 INHALER) INH SCH (17:30)
[2019-09-02] MEDS: Diabetic Tussin 200 MG/10 ML UDCUP PO PRN (20:50)
[2019-09-02] MEDS: Ascorbic Acid 500 mg Chewable Tablet PO SCH (20:50)
[2019-09-02] MEDS: Zinc Sulfate 220 MG CAP PO SCH (20:51)
[2019-09-02] MEDS: Polyethylene Glycol 3350 17 GM Packet PO SCH (21:35)
[2019-09-03] MEDS: methylPREDNISolone Sod Succ 40 MG VIAL IVP SCH ×3 (00:11→16:34)
[2019-09-03] MEDS: Albuterol 200 PUFF (6.7GM INHALER) INH SCH ×6 (02:16→22:22)
[2019-09-03] MEDS: Mometasone 100 MCG/PUFF (1 INHALER) INH SCH ×2 (05:50→17:45)
[2019-09-03 06:03] LABS: #Lymphocytes 0.6 thou/uL (1.20-3.40); #Monocytes 0.4 thou/uL (0.11-0.59); #Neutrophils 8.4 thou/uL (1.40-6.50); %Eosinophils 0.3 % (0.0-10.0); %Lymphocytes 6.7 % (21.0-51.0); %Neutrophils 89.1 % (42.0-75.0); Hemoglobin 12.8 g/dL (12.0-16.0); Mean Corpuscular HGB CONC 33.3 g/dL (32.0-36.0); Mean Corpuscular Hemoglobin 32.4 pg (27.0-31.0); Mean Corpuscular Volume 97.1 fL (78.0-98.0); Mean Platelet Volume 8.4 fL (7.4-10.4); Platelet Count 414 thou/uL (130-400); RBC Distribution Width 13.4 % (11.5-14.5); Red Blood Cell (RBC) Count 3.96 mill/uL (4.20-5.40); White Blood Cell (WBC) Count 9.4 thou/uL (4.8-10.8)
[2019-09-03 06:22] LABS: ALT (SGPT) 30 U/L (8-55); AST (SGOT) 16 U/L (5-34); Alkaline Phosphatase 87 U/L (40-110); Anion Gap 11 mmol/L (10-20); BUN (Urea Nitrogen) 19 mg/dL (9.8-20.1); Bilirubin, Total 0.3 mg/dL (0.2-1.2); Calc. Creatinine Clearance 146 mL/min (70-130); Calcium 8.5 mg/dL (7.8-10.44); Carbon Dioxide 26 mmol/L (22-29); Chloride 105 mmol/L (98-107); Estimated GFR-MDRD Greater than 90; Globulin 2.9 g/dL (2.4-3.5); Glucose 131 mg/dL (70-105); Potassium 4.6 mmol/L (3.5-5.1); Protein, Total 5.9 g/dL (6.0-8.3); Sodium 137 mmol/L (136-145)
[2019-09-03] MEDS: Senokot S 8.6-50 MG TAB PO SCH ×2 (07:52→20:11)
[2019-09-03] MEDS: Losartan 25 MG TAB PO SCH (07:52)
[2019-09-03] MEDS: guaiFENesin ER 600 MG TAB PO SCH ×2 (07:52→20:11)
[2019-09-03] MEDS: Amlodipine 5 MG TAB PO SCH (07:52)
[2019-09-03] MEDS: Doxycycline 100 MG CAP PO SCH ×2 (07:52→20:11)
[2019-09-03] MEDS: Famotidine 20 MG TAB PO SCH ×2 (07:52→20:11)
[2019-09-03] MEDS: Enoxaparin Sodium 40 MG/0.4 ML SYRINGE SC SCH ×2 (07:53→20:11)
[2019-09-03] MEDS: Multivit, Therapeutic 1 TAB PO SCH (07:53)
--- NOTE | 2019-09-03 10:18 | PRG ---
DATE OF SERVICE: 09/03/2019 SUBJECTIVE: Yojana Gordon is a 59-year-old female who is doing much better. OBJECTIVE: VITAL SIGNS: Her saturations now on 3 L are 93%, respiratory rate 18, temperature 98, pulse 76, blood pressure 150/84. GENERAL: She is sitting on the side of the bed and walking. CHEST: No wheezing. No crackles. CARDIAC: Normal S1 and S2. No gallops. ABDOMEN: No masses. ASSESSMENT: Hagan positive pneumonia, respiratory failure, status post Remdesivir, and plasma. Continue steroids. Baseline chest x-ray. If she is improved, we can probably plan to discharge home over the next several days. We will follow. Job ID: [id number]
[2019-09-03] MEDS ORDERED: predniSONE 20 MG TAB PO SCH (16:00)
--- NOTE | 2019-09-03 16:23 | PRG ---
DATE OF SERVICE: 09/03/2019 SUBJECTIVE: Ms. Mcmanus is feeling better, sitting on the bed, still gets winded when she does any effort. No abdominal pain. Still with coughing spells intermittently. No diarrhea. OBJECTIVE: VITAL SIGNS: She is afebrile; O2 saturations were 98 yesterday at 12 p.m. and down to 93 at 8 p.m. and up to 94 now, she is on 3 L nasal cannula, had been at 3-1/2 and was at 4 L/minute yesterday. LABORATORY DATA: D-dimer is down to 1.33. CRP is down to 1.67. Ferritin is down to 168, which is the lowest it has been. ASSESSMENT AND DISCUSSION: Hypertension, COVID infection, treated with Medrol and remdesivir, had been on Decadron before, looks like we have some improvement over the past 48 hours and hopefully, we will maintain the lungs sound pretty clear right now. Job ID: [id number] MTDD
[2019-09-03] MEDS: Ascorbic Acid 500 mg Chewable Tablet PO SCH (20:11)
[2019-09-03] MEDS: Zinc Sulfate 220 MG CAP PO SCH (20:12)
[2019-09-03] MEDS: Polyethylene Glycol 3350 17 GM Packet PO SCH (20:31)
--- NOTE | 2019-09-03 23:24 | PDOC.HOSPP ---
- Subjective Encounter Date: 09/03/19 Encounter Time: 17:00 Subjective: Patient seen and examined for resp failure. No new complaints. No overnight events - Objective Vital Signs & Weight: Vital Signs (12 hours) Temp Pulse Resp BP Pulse Ox 09/03/19 20:05 98.7 F 77 20 124/77 97 Weight Weight 202 lb 3.2 oz I&O: 09/02/19 09/03/19 09/04/19 06:59 06:59 06:59 Intake Total 840 1000 Balance 840 1000 Result Diagrams: 09/04/19 06:04 09/04/19 08:01 Hospitalist ROS - Review of Systems Cardiovascular: denies: chest pain, palpitations, orthopnea, paroxysmal noc. dyspnea, edema, light headedness, other Gastrointestinal: denies: nausea, vomiting, abdominal pain, diarrhea, constipation, melena, hematochezia, other - Medication Medications: Active Medications Generic Name Dose Route Start Last Admin Trade Name Freq PRN Reason Stop Dose Admin Acetaminophen 650 mg 08/25/19 23:29 09/01/19 22:27 Tylenol PO 650 mg Q4H PRN Administration Headache/Fever/Mild Pain (1-3) Albuterol Sulfate 2 puff 09/02/19 10:30 09/03/19 22:22 Proventil Hfa INH 2 puff [id number] ABEBE Administration Amlodipine Besylate 5 mg 08/26/19 09:00 09/03/19 07:52 Norvasc PO 5 mg DAILY ABEBE Administration Ascorbic Acid 1,000 mg 08/26/19 21:00 09/03/19 20:11 Vitamin C PO 1,000 mg HS ABEBE Administration Benzonatate 100 mg 08/27/19 00:52 08/31/19 19:39 Tessalon PO 100 mg TIDPRN PRN Administration Cough Doxycycline Hyclate 100 mg 08/31/19 21:00 09/03/19 20:11 Vibramycin PO 100 mg BID ABEBE Administration Enoxaparin Sodium 40 mg 08/26/19 09:00 09/03/19 20:11 Lovenox SC 40 mg 0900,2100 ABEBE Administration Famotidine 20 mg 08/31/19 09:00 09/03/19 20:11 Pepcid PO 20 mg BID ABEBE Administration Guaifenesin 600 mg 08/27/19 21:00 09/03/19 20:11 Mucinex PO 600 mg Q12HR ABEBE Administration Guaifenesin 200 mg 08/27/19 19:53 09/02/19 20:50 Robitussin Sf PO 200 mg Q4H PRN Administration Cough Losartan Potassium 50 mg 08/26/19 09:00 09/03/19 07:52 Cozaar PO 50 mg DAILY ABEBE Administration Methylprednisolone Sodium Succinate 40 mg 09/03/19 18:00 09/03/19 16:34 Solu-Medrol IVP Not Given 0600,1800 ABEBE Mometasone Furoate 200 mcg 09/02/19 18:30 09/03/19 17:45 Asmanex Hfa 100 Mcg INH 2 inh BID-RT ABEBE Administration Multivitamins 1 tab 08/27/19 09:00 09/03/19 07:53 Theragran PO 1 tab DAILY ABEBE Administration Polyethylene Glycol 17 gm 08/28/19 21:00 09/03/19 20:31 Miralax PO Not Given HS ABEBE Senna/Docusate Sodium 2 tab 08/28/19 21:00 09/03/19 20:11 Senokot S PO 2 tab BID ABEBE Administration Sodium Chloride 10 ml 08/26/19 21:00 09/03/19 20:12 Flush - Normal Saline IVF Not Given Q12HR ABEBE Throat Lozenges 1 russell 08/27/19 19:53 08/28/19 21:08 Cepastat Lozenges PO 1 russell Q2H PRN Administration Sore Throat Zinc Sulfate 220 mg 08/26/19 21:00 09/03/19 20:12 Zinc Sulfate PO 220 mg HS ABEBE Administration - Exam General Appearance: NAD Heart: RRR, no gallops Respiratory: no wheezes, no ronchi Gastrointestinal: non-tender, normal bowel sounds Extremities: no cyanosis Neurological: no new deficit Hosp A/P - Plan DVT proph w/lovenox Sepsis/Acute hypoxic resp failure due to COVID Pneumonia -s/p Remdesivir -s/p Conv Plasma -on Doxy -on Steroids HTN -on Amlodipine/Losartan Obesity BMI 37 Hypokalemia - replaced PLAN: Markers improving Cont Steroids Cont other meds as above Wean O2 as tolerated Cont GI & DVT prophylaxis Cont supportive care AM labs
[2019-09-04] MEDS: Albuterol 200 PUFF (6.7GM INHALER) INH SCH ×6 (02:21→22:38)
[2019-09-04] MEDS: methylPREDNISolone Sod Succ 40 MG VIAL IVP SCH ×2 (05:02→19:52)
[2019-09-04] MEDS: Mometasone 100 MCG/PUFF (1 INHALER) INH SCH ×2 (05:53→19:53)
[2019-09-04] MEDS: Benzonatate 100 MG CAP PO PRN ×2 (06:14→20:15)
[2019-09-04 06:30] LABS: #Lymphocytes 0.9 thou/uL (1.20-3.40); #Monocytes 0.7 thou/uL (0.11-0.59); #Neutrophils 7.1 thou/uL (1.40-6.50); %Basophils 0.1 % (0.0-1.0); %Eosinophils 0.2 % (0.0-10.0); %Monocytes 8.1 % (0.0-10.0); %Neutrophils 81.6 % (42.0-75.0); Hemoglobin 12.6 g/dL (12.0-16.0); Mean Corpuscular HGB CONC 33.5 g/dL (32.0-36.0); Mean Corpuscular Hemoglobin 32.2 pg (27.0-31.0); Mean Corpuscular Volume 96.2 fL (78.0-98.0); Mean Platelet Volume 10.7 fL (7.4-10.4); Platelet Count 370 thou/uL (130-400); RBC Distribution Width 14.1 % (11.5-14.5); Red Blood Cell (RBC) Count 3.89 mill/uL (4.20-5.40); White Blood Cell (WBC) Count 8.7 thou/uL (4.8-10.8)
--- NOTE | 2019-09-04 07:58 | RAD ---
EXAM: Single view of the chest HISTORY: Viral pneumonia COMPARISON: 08/31/2019 FINDINGS: Single view of the chest shows a normal sized cardiomediastinal silhouette. Multifocal infi ltrates are seen in the lungs, unchanged. The bones are unremarkable IMPRESSION: Stable multifocal pneumonia
[2019-09-04 08:29] LABS: Chloride 106 mmol/L (98-107); Potassium 4.2 mmol/L (3.5-5.1); Sodium 137 mmol/L (136-145)
[2019-09-04 08:30] LABS: Calcium 8.5 mg/dL (7.8-10.44); Glucose 115 mg/dL (70-105)
[2019-09-04 08:31] LABS: Globulin 3.2 g/dL (2.4-3.5); Protein, Total 6.2 g/dL (6.0-8.3)
[2019-09-04 08:32] LABS: Anion Gap 11 mmol/L (10-20); Bilirubin, Total 0.4 mg/dL (0.2-1.2); Carbon Dioxide 24 mmol/L (22-29)
[2019-09-04 08:33] LABS: Alkaline Phosphatase 82 U/L (40-110); CRP (Inflammatory) Less than 0.50 mg/dL (= or < 0.5)
[2019-09-04 08:34] LABS: Calc. Creatinine Clearance 146 mL/min (70-130); Estimated GFR-MDRD Greater than 90
[2019-09-04 08:35] LABS: AST (SGOT) 16 U/L (5-34); BUN (Urea Nitrogen) 18 mg/dL (9.8-20.1)
[2019-09-04 08:36] LABS: ALT (SGPT) 30 U/L (8-55)
[2019-09-04] MEDS: Multivit, Therapeutic 1 TAB PO SCH (10:13)
[2019-09-04] MEDS: guaiFENesin ER 600 MG TAB PO SCH ×2 (10:13→20:15)
[2019-09-04] MEDS: Losartan 25 MG TAB PO SCH (10:13)
[2019-09-04] MEDS: Doxycycline 100 MG CAP PO SCH ×2 (10:13→20:15)
[2019-09-04] MEDS: Senokot S 8.6-50 MG TAB PO SCH ×2 (10:13→20:15)
[2019-09-04] MEDS: Amlodipine 5 MG TAB PO SCH (10:13)
[2019-09-04] MEDS: Famotidine 20 MG TAB PO SCH ×2 (10:13→20:15)
[2019-09-04] MEDS: Enoxaparin Sodium 40 MG/0.4 ML SYRINGE SC SCH ×2 (10:14→20:15)
--- NOTE | 2019-09-04 12:27 | PRG ---
DATE OF SERVICE: 09/04/2019 SUBJECTIVE: This morning, she is doing better. OBJECTIVE: VITAL SIGNS: Temperature 97, pulse 80, saturations are 92% on 3 L, respirations 19, blood pressure 140/74. CHEST: Bilateral rhonchi and crackles. CARDIAC: Normal S1 and S2. No gallops. ABDOMEN: No masses. LABORATORY DATA: Her x-ray unfortunately looks somewhat worse today. Though she is clinically much improved, . ASSESSMENT: Hagan positive pneumonia, improved. She has received convalescent plasma. Ordering a BNP to see whether some of her infiltrates may be due to congestive heart failure. We will follow. Job ID: [id number]
[2019-09-04] MEDS: Zinc Sulfate 220 MG CAP PO SCH (20:15)
[2019-09-04] MEDS: Ascorbic Acid 500 mg Chewable Tablet PO SCH (20:15)
[2019-09-04] MEDS: Polyethylene Glycol 3350 17 GM Packet PO SCH (20:15)
--- NOTE | 2019-09-04 20:29 | PDOC.HOSPP ---
- Subjective Encounter Date: 09/04/19 Encounter Time: 20:29 Subjective: Patient seen and examined for Resp failure. SOB on mild exertion. No new complaints. No overnight events - Objective Vital Signs & Weight: Vital Signs (12 hours) Pulse 09/04/19 10:13 80 Weight Weight 202 lb 3.2 oz I&O: 09/03/19 09/04/19 09/05/19 06:59 06:59 06:59 Intake Total 2785 503 5480 Balance 6820 243 2624 Result Diagrams: 09/04/19 06:04 09/04/19 08:01 Hospitalist ROS - Review of Systems Respiratory: reports: shortness of breath, SOB with excertion. denies: cough, dry, hemoptysis, pleuritic pain, sputum, wheezing, other Cardiovascular: denies: chest pain, palpitations, orthopnea, paroxysmal noc. dyspnea, edema, light headedness, other - Medication Medications: Active Medications Generic Name Dose Route Start Last Admin Trade Name Freq PRN Reason Stop Dose Admin Acetaminophen 650 mg 08/25/19 23:29 09/01/19 22:27 Tylenol PO 650 mg Q4H PRN Administration Headache/Fever/Mild Pain (1-3) Albuterol Sulfate 2 puff 09/02/19 10:30 09/04/19 17:45 Proventil Hfa INH 2 puff [id number] ABEBE Administration Amlodipine Besylate 5 mg 08/26/19 09:00 09/04/19 10:13 Norvasc PO 5 mg DAILY ABEBE Administration Ascorbic Acid 1,000 mg 08/26/19 21:00 09/03/19 20:11 Vitamin C PO 1,000 mg HS ABEBE Administration Benzonatate 100 mg 08/27/19 00:52 09/04/19 06:14 Tessalon PO 100 mg TIDPRN PRN Administration Cough Doxycycline Hyclate 100 mg 08/31/19 21:00 09/04/19 10:13 Vibramycin PO 100 mg BID ABEBE Administration Enoxaparin Sodium 40 mg 08/26/19 09:00 09/04/19 10:14 Lovenox SC 40 mg 0900,2100 ABEBE Administration Famotidine 20 mg 08/31/19 09:00 09/04/19 10:13 Pepcid PO 20 mg BID ABEBE Administration Guaifenesin 600 mg 08/27/19 21:00 09/04/19 10:13 Mucinex PO 600 mg Q12HR ABEBE Administration Guaifenesin 200 mg 08/27/19 19:53 09/02/19 20:50 Robitussin Sf PO 200 mg Q4H PRN Administration Cough Losartan Potassium 50 mg 08/26/19 09:00 09/04/19 10:13 Cozaar PO 50 mg DAILY ABEBE Administration Methylprednisolone Sodium Succinate 40 mg 09/03/19 18:00 09/04/19 19:52 Solu-Medrol IVP 40 mg 0600,1800 ABEBE Administration Mometasone Furoate 200 mcg 09/02/19 18:30 09/04/19 19:53 Asmanex Hfa 100 Mcg INH 2 inh BID-RT ABEBE Administration Multivitamins 1 tab 08/27/19 09:00 09/04/19 10:13 Theragran PO 1 tab DAILY ABEBE Administration Polyethylene Glycol 17 gm 08/28/19 21:00 09/03/19 20:31 Miralax PO Not Given HS ABEBE Senna/Docusate Sodium 2 tab 08/28/19 21:00 09/04/19 10:13 Senokot S PO 2 tab BID ABEBE Administration Sodium Chloride 10 ml 08/26/19 21:00 09/04/19 10:14 Flush - Normal Saline IVF 10 ml Q12HR ABEBE Administration Throat Lozenges 1 russell 08/27/19 19:53 08/28/19 21:08 Cepastat Lozenges PO 1 russell Q2H PRN Administration Sore Throat Zinc Sulfate 220 mg 08/26/19 21:00 09/03/19 20:12 Zinc Sulfate PO 220 mg HS ABEBE Administration - Exam Neck: supple, no JVD Heart: RRR, no gallops Respiratory: no wheezes, rales, rhonchi Gastrointestinal: soft, non-distended Extremities: no cyanosis Neurological: no new deficit Hosp A/P - Plan DVT proph w/SCDs Sepsis/Acute hypoxic resp failure due to COVID Pneumonia -s/p Remdesivir -s/p Conv Plasma -on Doxy -on IV Steroids HTN -on Amlodipine/Losartan Obesity BMI 37 Hypokalemia - replaced PLAN: Cont Steroids per Pulmonary Wean O2 as tolerated Cont GI & DVT prophylaxis Cont supportive care AM labs Cont other meds as above DC planning in prob 2-3 days if stable
[2019-09-04] MEDS: Acetaminophen 325 MG TAB PO PRN (23:34)
[2019-09-05] MEDS: Albuterol 200 PUFF (6.7GM INHALER) INH SCH ×6 (03:02→22:00)
[2019-09-05] MEDS: methylPREDNISolone Sod Succ 40 MG VIAL IVP SCH (05:41)
[2019-09-05 06:22] LABS: #Lymphocytes 0.8 thou/uL (1.20-3.40); #Monocytes 0.4 thou/uL (0.11-0.59); #Neutrophils 6.3 thou/uL (1.40-6.50); %Basophils 0.1 % (0.0-1.0); %Eosinophils 0.5 % (0.0-10.0); %Lymphocytes 10.8 % (21.0-51.0); %Monocytes 5.4 % (0.0-10.0); %Neutrophils 83.2 % (42.0-75.0); Hemoglobin 12.8 g/dL (12.0-16.0); Mean Corpuscular HGB CONC 33.1 g/dL (32.0-36.0); Mean Corpuscular Hemoglobin 32.4 pg (27.0-31.0); Mean Corpuscular Volume 97.8 fL (78.0-98.0); Mean Platelet Volume 8.4 fL (7.4-10.4); Platelet Count 343 thou/uL (130-400); RBC Distribution Width 13.5 % (11.5-14.5); Red Blood Cell (RBC) Count 3.96 mill/uL (4.20-5.40); White Blood Cell (WBC) Count 7.6 thou/uL (4.8-10.8)
[2019-09-05] MEDS: Mometasone 100 MCG/PUFF (1 INHALER) INH SCH ×2 (06:41→19:00)
[2019-09-05 06:43] LABS: ALT (SGPT) 24 U/L (8-55); AST (SGOT) 10 U/L (5-34); Alkaline Phosphatase 78 U/L (40-110); Anion Gap 12 mmol/L (10-20); BUN (Urea Nitrogen) 17 mg/dL (9.8-20.1); Bilirubin, Total 0.4 mg/dL (0.2-1.2); Calc. Creatinine Clearance 154 mL/min (70-130); Calcium 8.4 mg/dL (7.8-10.44); Carbon Dioxide 24 mmol/L (22-29); Chloride 105 mmol/L (98-107); Estimated GFR-MDRD Greater than 90; Globulin 2.8 g/dL (2.4-3.5); Glucose 119 mg/dL (70-105); Potassium 4.4 mmol/L (3.5-5.1); Protein, Total 5.8 g/dL (6.0-8.3); Sodium 137 mmol/L (136-145)
[2019-09-05] MEDS: Doxycycline 100 MG CAP PO SCH ×2 (08:52→21:59)
[2019-09-05] MEDS: Senokot S 8.6-50 MG TAB PO SCH ×2 (08:52→22:00)
[2019-09-05] MEDS: Famotidine 20 MG TAB PO SCH ×2 (08:52→22:00)
[2019-09-05] MEDS: Enoxaparin Sodium 40 MG/0.4 ML SYRINGE SC SCH ×2 (08:53→21:59)
[2019-09-05] MEDS: guaiFENesin ER 600 MG TAB PO SCH ×2 (08:53→22:00)
[2019-09-05] MEDS: Multivit, Therapeutic 1 TAB PO SCH (08:53)
[2019-09-05] MEDS: Losartan 25 MG TAB PO SCH (08:53)
[2019-09-05] MEDS: Amlodipine 5 MG TAB PO SCH (08:53)
--- NOTE | 2019-09-05 11:17 | PRG ---
DATE OF SERVICE: 09/05/2019 SUBJECTIVE: This morning, she is doing better. OBJECTIVE: VITAL SIGNS: Temperature 97, pulse 74, saturations are 2 L, and blood pressure CHEST: No wheezing, no crackles. CARDIAC: Normal S1 and S2. No gallops. ABDOMEN: No masses. LABORATORY DATA: Unremarkable. ASSESSMENT: Hagan positive pneumonia, respiratory failure, improved. She has received remdesivir as well as convalescent plasma. I am going to decrease her steroids to daily. Hopefully, if she remains on low-flow O2, she can probably be discharged home in the next 24 to 48 hours. Job ID: [id number]
--- NOTE | 2019-09-05 12:52 | PDOC.HOSPP ---
- Subjective Encounter Date: 09/05/19 Encounter Time: 11:30 Subjective: Patient seen and examined for resp failure due to COVID Pneumonia. Mild dry cough. SOB + No other complaints. No overnight events - Objective Vital Signs & Weight: Vital Signs (12 hours) Pulse 09/05/19 08:53 84 Weight Weight 202 lb 3.2 oz I&O: 09/04/19 09/05/19 09/06/19 06:59 06:59 06:59 Intake Total 570 1740 Balance 570 1740 Result Diagrams: 09/05/19 05:56 09/05/19 05:56 Hospitalist ROS - Review of Systems Respiratory: reports: cough, dry, shortness of breath, SOB with excertion. denies: hemoptysis, pleuritic pain, sputum, wheezing, other Cardiovascular: denies: chest pain, palpitations, orthopnea, paroxysmal noc. dyspnea, edema, light headedness, other - Medication Medications: Active Medications Generic Name Dose Route Start Last Admin Trade Name Freq PRN Reason Stop Dose Admin Acetaminophen 650 mg 08/25/19 23:29 09/04/19 23:34 Tylenol PO 650 mg Q4H PRN Administration Headache/Fever/Mild Pain (1-3) Albuterol Sulfate 2 puff 09/02/19 10:30 09/05/19 10:30 Proventil Hfa INH 2 puff [id number] ABEBE Administration Amlodipine Besylate 5 mg 08/26/19 09:00 09/05/19 08:53 Norvasc PO 5 mg DAILY ABEBE Administration Ascorbic Acid 1,000 mg 08/26/19 21:00 09/04/19 20:15 Vitamin C PO 1,000 mg HS ABEBE Administration Benzonatate 100 mg 08/27/19 00:52 09/04/19 20:15 Tessalon PO 100 mg TIDPRN PRN Administration Cough Doxycycline Hyclate 100 mg 08/31/19 21:00 09/05/19 08:52 Vibramycin PO 100 mg BID ABEBE Administration Enoxaparin Sodium 40 mg 08/26/19 09:00 09/05/19 08:53 Lovenox SC 40 mg 0900,2100 ABEBE Administration Famotidine 20 mg 08/31/19 09:00 09/05/19 08:52 Pepcid PO 20 mg BID ABEBE Administration Guaifenesin 600 mg 08/27/19 21:00 09/05/19 08:53 Mucinex PO 600 mg Q12HR ABEBE Administration Guaifenesin 200 mg 08/27/19 19:53 09/02/19 20:50 Robitussin Sf PO 200 mg Q4H PRN Administration Cough Losartan Potassium 50 mg 08/26/19 09:00 09/05/19 08:53 Cozaar PO 50 mg DAILY ABEBE Administration Mometasone Furoate 200 mcg 09/02/19 18:30 09/05/19 06:41 Asmanex Hfa 100 Mcg INH 2 inh BID-RT ABEBE Administration Multivitamins 1 tab 08/27/19 09:00 09/05/19 08:53 Theragran PO 1 tab DAILY ABEBE Administration Polyethylene Glycol 17 gm 08/28/19 21:00 09/04/19 20:15 Miralax PO Not Given HS ABEBE Senna/Docusate Sodium 2 tab 08/28/19 21:00 09/05/19 08:52 Senokot S PO 2 tab BID ABEBE Administration Sodium Chloride 10 ml 08/26/19 21:00 09/05/19 08:54 Flush - Normal Saline IVF 10 ml Q12HR ABEBE Administration Throat Lozenges 1 russell 08/27/19 19:53 08/28/19 21:08 Cepastat Lozenges PO 1 russell Q2H PRN Administration Sore Throat Zinc Sulfate 220 mg 08/26/19 21:00 09/04/19 20:15 Zinc Sulfate PO 220 mg HS ABEBE Administration - Exam General Appearance: ill appearing Heart: RRR, no gallops Respiratory: no wheezes, rales, wheezes Gastrointestinal: soft, normal bowel sounds Extremities: no cyanosis, no clubbing Neurological: no new deficit Psychiatric: normal affect, A&O x 3 Hosp A/P - Plan respiratory therapy, incentive spirometry Sepsis/Acute hypoxic resp failure due to COVID Pneumonia -s/p Remdesivir -s/p Conv Plasma -on Doxy -on IV Steroids HTN -on Amlodipine/Losartan Obesity BMI 37 Hypokalemia - replaced PLAN: cont O2 supp Steroid dose reduced Cont HTN meds Cont supportive care Wean O2 as tolerated Cont GI & DVT prophylaxis AM labs DC planning in 24-48 hr Home O2 assessment
--- NOTE | 2019-09-05 17:12 | PRG ---
DATE OF SERVICE: 09/05/2019 SUBJECTIVE: The patient is feeling better. Less cough, less dyspnea. Able to eat. No anosmia. OBJECTIVE: VITAL SIGNS: Afebrile. O2 saturations are improved now, in the 99 range with 2 to 3 L nasal cannula. BP 130/82, breathing at 20 times per minute consistently so. GENERAL: No distress. Speaking in full sentences. LUNGS: Symmetric air entry. HEART: S1 and S2, regular rate. ABDOMEN: Soft, not distended. MEDICATIONS: 1. Medrol. 2. P.r.n. medications. 3. Norvasc. All the inflammatory markers are improving. ASSESSMENT AND DISCUSSION: Hypertension, COVID infection, on remdesivir, Decadron, Medrol, and now improvement. Should be able to go home with oxygen supplementation in the next 48 hours. Job ID: [id number]
[2019-09-05] MEDS: Polyethylene Glycol 3350 17 GM Packet PO SCH (22:00)
[2019-09-05] MEDS: Zinc Sulfate 220 MG CAP PO SCH (22:00)
[2019-09-05] MEDS: Ascorbic Acid 500 mg Chewable Tablet PO SCH (22:00)
[2019-09-05] MEDS: Benzonatate 100 MG CAP PO PRN (22:11)
[2019-09-06] MEDS: Albuterol 200 PUFF (6.7GM INHALER) INH SCH ×6 (02:00→23:00)
[2019-09-06] MEDS: Mometasone 100 MCG/PUFF (1 INHALER) INH SCH ×2 (05:40→18:20)
[2019-09-06 06:26] LABS: #Eosinphils 0.1 thou/uL (0.0-0.7); #Lymphocytes 1.7 thou/uL (1.20-3.40); #Neutrophils 5.6 thou/uL (1.40-6.50); %Basophils 0.1 % (0.0-1.0); %Eosinophils 1.3 % (0.0-10.0); %Lymphocytes 19.8 % (21.0-51.0); %Monocytes 11.8 % (0.0-10.0); Hemoglobin 12.1 g/dL (12.0-16.0); Mean Corpuscular HGB CONC 33.4 g/dL (32.0-36.0); Mean Corpuscular Hemoglobin 32.3 pg (27.0-31.0); Mean Corpuscular Volume 96.7 fL (78.0-98.0); Mean Platelet Volume 8.8 fL (7.4-10.4); Platelet Count 303 thou/uL (130-400); RBC Distribution Width 13.8 % (11.5-14.5); Red Blood Cell (RBC) Count 3.75 mill/uL (4.20-5.40); White Blood Cell (WBC) Count 8.3 thou/uL (4.8-10.8)
[2019-09-06] MEDS: Benzonatate 100 MG CAP PO PRN (06:41)
[2019-09-06 06:45] LABS: ALT (SGPT) 22 U/L (8-55); AST (SGOT) 11 U/L (5-34); Albumin 2.9 g/dL (3.5-5.0); Alkaline Phosphatase 77 U/L (40-110); Anion Gap 11 mmol/L (10-20); BUN (Urea Nitrogen) 19 mg/dL (9.8-20.1); Bilirubin, Total 0.5 mg/dL (0.2-1.2); CRP (Inflammatory) Less than 0.50 mg/dL (= or < 0.5); Calc. Creatinine Clearance 149 mL/min (70-130); Calcium 8.3 mg/dL (7.8-10.44); Carbon Dioxide 25 mmol/L (22-29); Chloride 105 mmol/L (98-107); Estimated GFR-MDRD Greater than 90; Globulin 2.8 g/dL (2.4-3.5); Glucose 87 mg/dL (70-105); Potassium 4.3 mmol/L (3.5-5.1); Protein, Total 5.7 g/dL (6.0-8.3); Sodium 137 mmol/L (136-145)
[2019-09-06] MEDS: Multivit, Therapeutic 1 TAB PO SCH (08:54)
[2019-09-06] MEDS: Famotidine 20 MG TAB PO SCH ×2 (08:54→21:03)
[2019-09-06] MEDS: Losartan 25 MG TAB PO SCH (08:54)
[2019-09-06] MEDS: Amlodipine 5 MG TAB PO SCH (08:54)
[2019-09-06] MEDS: Senokot S 8.6-50 MG TAB PO SCH ×3 (08:54→21:03)
[2019-09-06] MEDS: Doxycycline 100 MG CAP PO SCH ×2 (08:54→21:03)
[2019-09-06] MEDS: Enoxaparin Sodium 40 MG/0.4 ML SYRINGE SC SCH ×2 (08:54→21:04)
[2019-09-06] MEDS: guaiFENesin ER 600 MG TAB PO SCH ×2 (08:54→21:03)
[2019-09-06] MEDS ORDERED: methylPREDNISolone Sod Succ 40 MG VIAL IVP SCH (09:00)
[2019-09-06] MEDS: Diabetic Tussin 200 MG/10 ML UDCUP PO PRN ×2 (12:35→16:50)
--- NOTE | 2019-09-06 13:54 | PRG ---
DATE OF SERVICE: 09/06/2019 SUBJECTIVE: She is better this morning, she is still weak. OBJECTIVE: VITAL SIGNS: Temperature 97, saturations 92% on 3 L, respiratory rate 20, pulse 100, blood pressure 112/78. CHEST: No wheezing. No crackles. CARDIAC: Normal S1, S2. No gallops. ABDOMEN: No masses. LABORATORY DATA: Unremarkable. Her CO2 back to normal. ASSESSMENT AND PLAN: Respiratory failure, kiser positive pneumonia, much improved. She can probably be discharged home on prednisone for 10 days, doxycycline for another week. Job ID: [id number]
--- NOTE | 2019-09-06 18:31 | PDOC.HOSPP ---
- Subjective Encounter Date: 09/06/19 Encounter Time: 15:00 Subjective: Patient seen and examined for resp failure. SOB improving. No CP. No new complaints. No overnight events - Objective Vital Signs & Weight: Vital Signs (12 hours) Temp Pulse Resp BP Pulse Ox 09/06/19 17:00 98 F 70 16 129/81 98 09/06/19 16:55 69 16 87 L 09/06/19 16:40 16 94 L 09/06/19 08:55 97.8 F 100 20 112/78 92 L Weight Admit Weight 202 lb 3.2 oz Weight 202 lb 3.2 oz I&O: 09/05/19 09/06/19 09/07/19 06:59 06:59 06:59 Intake Total 1740 2 Balance 1740 192 Result Diagrams: 09/06/19 05:58 09/06/19 05:58 Hospitalist ROS - Review of Systems Cardiovascular: denies: chest pain, palpitations, orthopnea, paroxysmal noc. dyspnea, edema, light headedness, other Gastrointestinal: denies: nausea, vomiting, abdominal pain, diarrhea, constipation, melena, hematochezia, other - Medication Medications: Active Medications Generic Name Dose Route Start Last Admin Trade Name Freq PRN Reason Stop Dose Admin Acetaminophen 650 mg 08/25/19 23:29 09/04/19 23:34 Tylenol PO 650 mg Q4H PRN Administration Headache/Fever/Mild Pain (1-3) Albuterol Sulfate 2 puff 09/02/19 10:30 09/06/19 18:20 Proventil Hfa INH 2 puff [id number] ABEBE Administration Amlodipine Besylate 5 mg 08/26/19 09:00 09/06/19 08:54 Norvasc PO 5 mg DAILY ABEBE Administration Ascorbic Acid 1,000 mg 08/26/19 21:00 09/05/19 22:00 Vitamin C PO 1,000 mg HS ABEBE Administration Benzonatate 100 mg 08/27/19 00:52 09/06/19 06:41 Tessalon PO 100 mg TIDPRN PRN Administration Cough Doxycycline Hyclate 100 mg 08/31/19 21:00 09/06/19 08:54 Vibramycin PO 100 mg BID ABEBE Administration Enoxaparin Sodium 40 mg 08/26/19 09:00 07/23/20 08:54 Lovenox SC 40 mg 0900,2100 ABEBE Administration Famotidine 20 mg 08/31/19 09:00 09/06/19 08:54 Pepcid PO 20 mg BID ABEBE Administration Guaifenesin 600 mg 08/27/19 21:00 09/06/19 08:54 Mucinex PO 600 mg Q12HR ABEBE Administration Guaifenesin 200 mg 08/27/19 19:53 09/06/19 16:50 Robitussin Sf PO 200 mg Q4H PRN Administration Cough Losartan Potassium 50 mg 08/26/19 09:00 09/06/19 08:54 Cozaar PO 50 mg DAILY ABEBE Administration Mometasone Furoate 200 mcg 09/02/19 18:30 09/06/19 18:20 Asmanex Hfa 100 Mcg INH 200 mcg BID-RT ABEBE Administration Multivitamins 1 tab 08/27/19 09:00 09/06/19 08:54 Theragran PO 1 tab DAILY ABEBE Administration Polyethylene Glycol 17 gm 08/28/19 21:00 09/05/19 22:00 Miralax PO Not Given HS ABEBE Senna/Docusate Sodium 2 tab 08/28/19 21:00 09/06/19 10:50 Senokot S PO Not Given BID ABEBE Sodium Chloride 10 ml 08/26/19 21:00 09/06/19 08:54 Flush - Normal Saline IVF 10 ml Q12HR ABEBE Administration Throat Lozenges 1 russell 08/27/19 19:53 08/28/19 21:08 Cepastat Lozenges PO 1 russell Q2H PRN Administration Sore Throat Zinc Sulfate 220 mg 08/26/19 21:00 09/05/19 22:00 Zinc Sulfate PO 220 mg HS ABEBE Administration - Exam General Appearance: ill appearing Heart: RRR, no gallops Respiratory: no rales, rhonchi Gastrointestinal: soft, non-distended, normal bowel sounds Extremities: no cyanosis Neurological: no new deficit Hosp A/P - Plan DVT proph w/lovenox, DVT proph w/SCDs Sepsis/Acute hypoxic resp failure due to COVID Pneumonia -s/p Remdesivir -s/p Conv Plasma -on Doxy -on IV Steroids HTN -on Amlodipine/Losartan Obesity BMI 37 Hypokalemia - replaced PLAN: cont O2 supp with Steroids Cont HTN and other meds as above Markers improving Home O2 assessment Cont supportive care Cont GI & DVT prophylaxis DC planning in AM if stable
[2019-09-06] MEDS: Ascorbic Acid 500 mg Chewable Tablet PO SCH (21:03)
[2019-09-06] MEDS: Polyethylene Glycol 3350 17 GM Packet PO SCH (21:04)
[2019-09-06] MEDS: Zinc Sulfate 220 MG CAP PO SCH (21:04)
[2019-09-07] MEDS: Albuterol 200 PUFF (6.7GM INHALER) INH SCH ×3 (01:59→08:57)
[2019-09-07] MEDS: Benzonatate 100 MG CAP PO PRN (01:59)
[2019-09-07] MEDS: Mometasone 100 MCG/PUFF (1 INHALER) INH SCH (06:03)
[2019-09-07] MEDS ORDERED: predniSONE 20 MG TAB PO SCH (08:00)
[2019-09-07] MEDS: Doxycycline 100 MG CAP PO SCH (08:54)
[2019-09-07] MEDS: Amlodipine 5 MG TAB PO SCH (08:54)
[2019-09-07] MEDS: Enoxaparin Sodium 40 MG/0.4 ML SYRINGE SC SCH (08:54)
[2019-09-07] MEDS: Famotidine 20 MG TAB PO SCH (08:55)
[2019-09-07] MEDS: guaiFENesin ER 600 MG TAB PO SCH (08:55)
[2019-09-07] MEDS: Senokot S 8.6-50 MG TAB PO SCH (08:55)
[2019-09-07] MEDS: Multivit, Therapeutic 1 TAB PO SCH (08:55)
[2019-09-07] MEDS: Losartan 25 MG TAB PO SCH (08:56)
--- NOTE | 2019-09-07 10:14 | PRG ---
DATE OF SERVICE: 09/07/2019 SUBJECTIVE: This morning, the patient is awake, alert, responsive, much better. OBJECTIVE: VITAL SIGNS: Temperature is 97, pulse 90, blood pressure 109/63, respiratory rate 18, sats 95%. CHEST: No wheezing or crackles. CARDIAC: Normal S1 . ASSESSMENT AND PLAN: Respiratory failure, kiser positive pneumonia follow up with primary care physician. Job ID: [id number]
[2019-09-07 10:17] VITALS: BP 112/73; TEMP 98.5
--- NOTE | 2019-09-07 16:53 | DIS ---
DATE OF ADMISSION: 08/25/2019 DATE OF DISCHARGE: 09/07/2019 DISCHARGE DISPOSITION: Home. FOLLOWUP: 1. Follow up with primary care physician, Dr. Isaac Rocha in 1 week. 2. Follow up with Pulmonary, Dr. Ward and Dr. Shepard in 10 days. Home oxygen has been arranged. The patient was evaluated on the day of discharge. Denies any new complaints. Shortness of breath has significantly improved. The patient is currently on 2 L nasal cannula. BRIEF HOSPITAL COURSE: The patient is a 59-year-old female, who presented to the emergency room on 25 August 2019 with worsening shortness of breath. Workup was consistent with COVID-19 pneumonia along with respiratory failure. She was started on O2 supplementation. The patient was evaluated by Infectious Disease and Pulmonary. She received a remdesivir, convalescent plasma, as well as dexamethasone. Dexamethasone was later on changed to IV Solu-Medrol per Pulmonary recommendation. She is currently on 2 L nasal cannula. The patient has been cleared by consultants for discharge home on oxygen. Inflammatory markers have significantly improved. The patient was counseled extensively on COVID-19 precautions. FINAL DIAGNOSES: 1. Acute hypoxic respiratory failure. 2. Sepsis due to COVID-19 pneumonia. 3. Hypertension. 4. Obesity with a BMI of 37. 5. Hypokalemia. DIAGNOSTIC TESTS: 1. D-dimer on admission was 3.0, at discharge 0.81. 2. CRP on admission was 5.29, at discharge was less than 0.5. 3. Ferritin on admission was 315, at discharge was 139. DISCHARGE MEDICATIONS: 1. Albuterol inhaler every 4 hours. 2. Mucinex 600 mg b.i.d. 3. Vitamin C and zinc. 4. Doxycycline 100 mg b.i.d. for 1 week. 5. Pepcid 20 mg b.i.d. for 10 days. 6. Prednisone taper per Pulmonary recommendation. 7. The patient was advised to continue amlodipine and Cozaar. The patient understands the above plan of care. Job ID: [id number]
--- NOTE | 2019-09-08 01:25 | PQF ---
CLINICAL DOCUMENTATION CLARIFICATION FORM: Dear : Calos Ruiz Date / Time: 09/08/19 4844 Please exercise your independent, professional judgment in responding to the clarification form. Clinical indicators are provided on the bottom of this form for your review Diagnosis: Sepsis Present on Admission (POA): [ x ] Yes [ ] No [ ] Unable to determine Physician Signature: Date/Time: For continuity of documentation, please document condition throughout progress notes and discharge summary. Thank You. To be completed by CDI/Coding staff for physician review: Present Clinical Indicators - Signs / Symptoms / Labs Results and Location in Medical Record [X] WBC 3.2, Plt count 434, Neutrophils 75.9 Laboratory Hematology 08/25 [X] Blood culture-no growth in 5 days Microbiology 08/24 [X] BP 161/81, Pulse 117, Resp 24, Temp 99.9 Vital signs 08/24 [X] SIRS scoring: Yes did meet at least 2 criteria ED notes p2 08/24 [X] Beed in contact with workers who tested positive for Covid-19 H&P p1 08/24 Dr Jj [X] Developing severe headaches and neck pain, myalgua, fatigue and cough H&P p1 08/24 Dr Jj [X] Covid 19 associated with Pneumonia H&P p2 08/24 Dr Jj [X] Sepsis/ Acute hypoxic resp failure due tp Covid Pneumonia HPN p3 08/29 Dr Ruiz Present Risk Factors Results and Location in Medical Record [X] 59 year-old Female H&P p1 08/24 Dr Jj [X] HTN H&P p1 08/24 Dr Jj [X] Covid 19 associated with Pneumonia H&P p2 08/24 Dr Jj [X] Obesity H&P p2 08/24 Dr Jj Present Treatments Results and Location in Medical Record [X] IV Ceftriaxone 1 gm APR 20 [X] IV Dexamethasone 6 mg APR 20 [X] IV Vancomycin 1.75 gm APR 20 [X] Blood culture Microbiology 08/24 [X] FFP transfusion Blood Bank 08/30 [X] Isolation Ordered Dr Jj 08/24 [X] Sepsis Protocol Ordered Dr Jj 08/24 [X] ID consult Consult Ady Tabares 08/25 [X] Pulmo Consult Consult Flaco Langley 7/17 [employer] Maintainer Signature: Dorothea Del Rosario Phone #: [phone] Date/Time: 09/08/194 This is a permanent part of the Medical Record [facility]
== END 2019-09-07 14:56 | disposition home or self-care (01) | DRG 871 ==
LOC: ERS 19:41 → T4-A 20:43
PROVIDERS: ADMIT Internal Medicine; ATTEND Internal Medicine
PROC: 8E0ZXY6 Isolation (ICD-10-PCS; principal; 2019-08-25)
PROC: 30233L1 Transfusion of Nonautologous Fresh Plasma into Peripheral Vein, Percutaneous Approach (ICD-10-PCS; 2019-08-31)
PROC: 30233K1 Transfusion of Nonautologous Frozen Plasma into Peripheral Vein, Percutaneous Approach (ICD-10-PCS; 2019-08-31)
DX: A41.89 Other specified sepsis (principal); U07.1 COVID-19; J12.89 Other viral pneumonia; J96.01 Acute respiratory failure with hypoxia; E66.9 Obesity, unspecified; Z68.37 Body mass index [BMI] 37.0-37.9, adult; E87.6 Hypokalemia; E78.00 Pure hypercholesterolemia, unspecified; E78.5 Hyperlipidemia, unspecified; I10 Essential (primary) hypertension; Z90.710 Acquired absence of both cervix and uterus; Z88.8 Allergy status to other drugs, medicaments and biological substances; Z79.899 Other long term (current) drug therapy
CPT/HCPCS: 36415; 36430; 71045; 80053; 82728; 83735; 83880; 85025; 85379; 86140; 86850; 86900; 86901; 93005; 96374; J0696; J1100; J1650; J2920; J3370; J7030; J7512